=== PATIENT | male | born 1965 | race Caucasian/White ===

== ENCOUNTER 2017-02-24 22:31 | Inpatient (IN) | payer OTHER ==
--- NOTE | 2017-02-24 22:39 | ER Document Report ---
ED Cardiac - General Chief Complaint: Chest Pain > 30 Stated Complaint: CHEST PAIN Time Seen by Provider: 02/24/17 22:37 Mode of Arrival: Medic Information source: Patient Notes: Patient is a 51-year-old male with a history of pulmonary embolism on blood pressure medication who presents to the ER today for left-sided chest pain radiating to the left arm and the left upper back that began this morning. Patient admits to shortness of breath and "gasping for air." He admits to nausea and vomiting this morning as well. Patient is not on any blood thinners , they were stopped 6 months ago after 6 months of them. His pulmonary embolism was a year ago. He was given nitroglycerin on the ambulance on the way here and states that his pain did relieve, has been chest pain-free here in the emergency department. The nitroglycerin did drop his blood pressure to 90/ 40. He denies any history of asthma or COPD, issues breathing. TRAVEL OUTSIDE OF THE [place] IN LAST 30 DAYS: No - Related Data Allergies/Adverse Reactions: acetaminophen [From Percocet] Allergy (Verified 01/01/14 20:19) codeine [Codeine] Allergy (Verified 01/01/14 20:19) oxycodone HCl [From Percocet] Allergy (Verified 01/01/14 20:19) Penicillins Allergy (Verified 01/01/14 20:19) Past Medical History - General Information source: Patient - Social History Smoking Status: Former Smoker Family History: Hypertension - Past Medical History Cardiac Medical History: Reports: Hx Hypertension Neurological Medical History: Reports: Hx Migraine Renal/ Medical History: Reports: Hx Kidney Stones Psychiatric Medical History: Reports: Hx Post Traumatic Stress Disorder Past Surgical History: Reports: Hx Orthopedic Surgery - tmj joint replacement, knee, left shoulder reconstruction - Immunizations Hx Diphtheria, Pertussis, Tetanus Vaccination: Yes Review of Systems - Review of Systems Constitutional: No symptoms reported EENT: No symptoms reported Cardiovascular: See HPI Respiratory: See HPI Gastrointestinal: See HPI Genitourinary: No symptoms reported Male Genitourinary: No symptoms reported Musculoskeletal: No symptoms reported Skin: No symptoms reported Hematologic/Lymphatic: No symptoms reported Neurological/Psychological: No symptoms reported Physical Exam - Vital signs Vitals: Pulse Ox 93 02/24/17 22:34 - Notes Notes: PHYSICAL EXAMINATION: GENERAL: pale, in no acute distress. HEAD: Atraumatic, normocephalic. EYES: Pupils equal round and reactive to light, extraocular movements intact, sclera anicteric, conjunctiva are normal. NECK: Normal range of motion, supple without lymphadenopathy LUNGS: on nasal cannula oxygen, CTAB and equal. No wheezes rales or rhonchi. HEART: chest nontender to palpation, Regular rate and rhythm without murmurs ABDOMEN: Soft, no tenderness. No guarding, no rebound BACK: no vertebral tenderness, normal ROM GI/: no CVA tenderness EXTREMITIES: calves nontender, Normal range of motion, no pitting edema. No cyanosis. NEUROLOGICAL: Cranial nerves grossly intact. Normal sensory/motor exams. PSYCH: Normal mood, normal affect. SKIN: Warm, Dry, normal turgor, no rashes or lesions noted Course - Re-evaluation Re-evalutation: 02/25/17 03:36 Pt has a mildly elevated WBC, d dimer is elevated at 3.95, CTA of the chest negative for PE or acute pathology. chest x ray normal. two sets of cardiac enzymes normal. Pt has remained tachycardic at 101-110 here in the ER and respiratory rate of 25-29 with only 95% on 2L of oxygen. stable aortic aneurysm at 3.8cm, not leaking. Dr. Johnson agrees to admit pt at this time for chest pain rule out. Chest pain has not returned here in ER. - Vital Signs Vital signs: Temp Pulse Resp BP Pulse Ox 99.4 F 110 H 25 H 116/84 94 02/24/17 22:46 02/24/17 22:46 02/25/17 02:01 02/25/17 02:00 02/25/17 02:01 - Laboratory Result Diagrams: 02/24/17 23:15 02/24/17 22:55 Laboratory results interpreted by me: 02/24/17 02/24/17 02/24/17 22:55 22:55 23:15 WBC 14.5 H RBC 3.99 L MCV 98 H MCH 34.1 H Seg Neutrophils % 83.7 H Lymphocytes % 6.1 L Absolute Neutrophils 12.1 H D-Dimer 3.95 H Sodium 135.9 L Chloride 97 L Glucose 122 H Direct Bilirubin 0.6 H Discharge - Discharge Clinical Impression: Chest pain Qualifiers: Chest pain type: unspecified Qualified Code(s): R07.9 - Chest pain, unspecified Condition: Stable Disposition: ADMITTED OBSERVATION Admitting Provider: Hospitalist Unit Admitted: Telemetry
--- NOTE | 2017-02-24 23:22 | RADIOLOGY REPORT (SQ) ---
EXAM DESCRIPTION: CHEST SINGLE VIEW COMPLETED DATE/TIME: 02/24/2017 11:04 pm REASON FOR STUDY: cp COMPARISON: 9.18.15 EXAM PARAMETERS: NUMBER OF VIEWS: One view. TECHNIQUE: Single frontal radiographic view of the chest acquired. RADIATION DOSE: NA LIMITATIONS: None. FINDINGS: LUNGS AND PLEURA: No opacities, masses or pneumothorax. No pleural effusion. MEDIASTINUM AND HILAR STRUCTURES: No masses. Contour normal. HEART AND VASCULAR STRUCTURES: Heart normal in size. Normal vasculature. BONES: No acute findings. HARDWARE: None in the chest. OTHER: No other significant finding. IMPRESSION: NO ACUTE RADIOGRAPHIC FINDING IN THE CHEST. TECHNICAL DOCUMENTATION: JOB ID: [id number]
[2017-02-24 23:38] LABS: ABSOLUTE BASOPHILS # (AUTO) 0.1 10^3/uL (0.0-0.2); ABSOLUTE LYMPHOCYTES (AUTO) 0.9 10^3/uL (0.5-4.7); ABSOLUTE MONOCYTES (AUTO) 1.4 10^3/uL (0.1-1.4); ABSOLUTE NEUT (AUTO) 12.1 10^3/uL (1.7-8.2); BASOPHILS % (AUTO) 0.4 % (0-2); EOSINOPHILS % (AUTO) 0.3 % (0-6); HEMATOCRIT 39.2 % (37.9-51.0); HEMOGLOBIN 13.6 g/dL (13.5-17.0); HGB HCT DIFFERENCE 1.6; LYMPHOCYTES % (AUTO) 6.1 % (13-45); MEAN CORPUSCULAR HEMOGLOBIN 34.1 pg (27.0-33.4); MEAN CORPUSCULAR HGB CONC 34.8 g/dL (32.0-36.0); MEAN CORPUSCULAR VOLUME 98 fl (80-97); MONOCYTES % (AUTO) 9.5 % (3-13); RED BLOOD COUNT 3.99 10^6/uL (4.35-5.55); RED CELL DISTRIBUTION WIDTH 12.6 % (11.5-14.0); SEGMENTED NEUTROPHILS % (AUTO) 83.7 % (42-78); WHITE BLOOD COUNT 14.5 10^3/uL (4.0-10.5)
[2017-02-24 23:43] LABS: CREATINE KINASE MB 0.36 ng/mL (<4.55)
[2017-02-24 23:45] LABS: TROPONIN I < 0.012 ng/mL
[2017-02-24 23:48] LABS: ALBUMIN 3.9 g/dL (3.5-5.0); CHLORIDE 97 mmol/L (98-107); GLUCOSE 122 mg/dL (75-110); POTASSIUM 3.9 mmol/L (3.6-5.0); SODIUM 135.9 mmol/L (137-145); TOTAL PROTEIN 7.6 g/dL (6.3-8.2)
[2017-02-24 23:49] LABS: ANION GAP 15 (5-19); BLOOD UREA NITROGEN 11 mg/dL (7-20); CARBON DIOXIDE 24 mmol/L (22-30); CREATININE RESULT 0.88 mg/dL (0.52-1.25)
[2017-02-24 23:50] LABS: ALANINE AMINOTRANSFERASE 42 U/L (21-72); ALKALINE PHOSPHATASE 103 U/L (38-126); ASPARTATE AMINO TRANSFERASE 46 U/L (17-59); CALCIUM 9.6 mg/dL (8.4-10.2)
[2017-02-24 23:51] LABS: BILIRUBIN,DIRECT 0.6 mg/dL (0.0-0.4); CREATINE KINASE 73 U/L (55-170)
--- NOTE | 2017-02-25 00:59 | RADIOLOGY REPORT (SQ) ---
EXAM DESCRIPTION: CTA CHEST COMPLETED DATE/TIME: 02/25/2017 12:25 am REASON FOR STUDY: elevated d dimer, hx PE, cp COMPARISON: 02/01/2015. TECHNIQUE: CT scan of the chest performed using helical scanning technique with dynamic intravenous contrast injection. Images reviewed with lung, soft tissue and bone windows. Reconstructed coronal and sagittal MPR images reviewed. Additional 3 dimensional post-processing performed to develop Maximal Intensity Projection images (ID P). All images stored on PACS. All CT scanners at this facility use dose modulation, iterative reconstruction, and/or weight based d osing when appropriate to reduce radiation dose to as low as reasonably achievable (ALARA). [facility]: Dose Right [facility]: CareDose [facility]: Dose Right [facility]: Teradose 4D [facility]: A+ Network CONTRAST TYPE AND DOSE: contrast/concentration: Isovue 370.00 mg/ml; Total Contrast Delivered: 100.0 ml; Total Saline Delivered: 55.0 ml Contrast bolus optimized for the pulmonary arteries. Not diagnostic for the aorta. RENAL FUNCTION: Creatinine 0.9 RADIATION DOSE: Up-to-date CT equipment and radiation dose reduction techniques were employed. CTDIv ol: 19.7 mGy. DLP: 703 mGy-cm. . LIMITATIONS: None. FINDINGS: LUNGS AND PLEURA: No masses, infiltrates, pneumothorax. No pleural effusions, calcificati ons. AORTA AND GREAT VESSELS: Mild aneurysmal enlargement of the ascending aorta measuring up to 3.8 cm in diameter. Contrast bolus not optimized for the aorta. HEART: No pericardial effusion. No significant coronary artery calcifications. PULMONARY ARTERIES: No emboli visualized in the main pulmonary arteries or the segmental branches. HILAR AND MEDIASTINAL STRUCTURES: No identified masses or abnormal nodes. HARDWARE: None in the chest. UPPER ABDOMEN: Limited exam. Splenule. Cortical scar of the left upper renal pole. THYROID AND OTHER SOFT TISSUES: No masses. No adenopathy. BONES: No acute or significant finding. 3D MIPS: Confirm above findings. OTHER: No other significant finding. IMPRESSION: No acute cardiopulmonary findings. No evidence of pulmonary emboli. Mild aneurysmal en largement of the ascending aorta measuring up to 3.8 cm in diameter without suspicious interval andersen e. COMMENT: Quality ID # [id number]: Final reports with documentation of one or more dose reduction techniques (e.g., Automated exposure control, adjustment of the mA and/or kV according to patient size, use of iterative reconstruction technique) TECHNICAL DOCUMENTATION: JOB ID: [id number] [employer]- All Rights Reserved
[2017-02-25] MEDS ORDERED: NITROGLYCERIN 0.4 MG/TAB 25 TAB/BOTTLE SL PRN (05:47)
[2017-02-25] MEDS ORDERED: HYDRALAZINE HCL INJ/PF 20 MG/1 ML SDV IV PRN (05:50)
[2017-02-25] MEDS ORDERED: (PENDING PHARMACY ID) (Aripiprazole [Abilify 10 Mg Tablet] 10 MG) PO PRN (05:50)
[2017-02-25] MEDS ORDERED: INFLUENZA ADLT QUAD (36MOS+) 2017-18 VAC 0.5 ML SYR IM PRN ×2 (06:10→13:30)
--- NOTE | 2017-02-25 06:29 | PDOC H&P ---
History of Present Illness Admission Date/PCP: 02/25/17 03:41 Patient complains of: Chest pain History of Present Illness: CHELY ALVAREZ is a 51 year old male with a past medical history of depression, anxiety, hypertension, pulmonary embolism not on anticoagulation, 4 cm thoracic aortic aneurysm and BPH who is brought to the emergency room by [facility] as he is in custody of the state. He has had approximately 12 hours of sharp left-sided intermittent 3 out of 5 intensity chest pain, nonradiating associated with nausea without vomiting and shortness of breath. He admits previous episode approximately 18 months ago secondary to pulmonary embolism. Initial workup in the emergency room is unremarkable including a negative CTA of the chest for pulmonary embolism. The CT does show an unchanged thoracic aortic aneurysm of 4 cm. Past Medical History Cardiac Medical History: Reports: Hypertension Neurological Medical History: Reports: Migraine Psychiatric Medical History: Reports: Post Traumatic Stress Disorder Past Surgical History Past Surgical History: Reports: Orthopedic Surgery - tmj joint replacement, knee , left shoulder reconstruction Social History Information Source: Patient Lives with: Other - Present Smoking Status: Unknown if Ever Smoked Drugs: None - Advance Directive Resuscitation Status: Full Code Family History Family History: Hypertension Parental Family History Reviewed: Yes Children Family History Reviewed: Yes Sibling(s) Family History Reviewed.: Yes Medication/Allergy Home Medications: Docusate Sodium [Dulcolax Stool Softener] 100 mg PO DAILY 04/27/13 Hydrocodone/Acetaminophen [[place] 10-325 Tablet] 1 each PO ASDIR PRN 04/27/13 Mirtazapine 15 mg PO QHS 04/27/13 Morphine Sulfate 15 mg PO ASDIR PRN 04/27/13 Ondansetron HCl [Zofran 4 mg Tablet] 1 - 2 tab PO Q4H PRN 04/27/13 Prazosin HCl 2 mg PO ASDIR PRN 04/27/13 Zolpidem Tartrate 10 mg PO QHS 04/27/13 Aripiprazole [Abilify 10 mg Tablet] 10 mg PO HSP PRN 02/01/15 Clonazepam [Klonopin] 0.5 mg PO PRN 02/01/15 Metoprolol Succinate 25 mg PO DAILY 02/01/15 Pregabalin [Lyrica 75 mg Capsule] 75 mg PO BID 02/01/15 Rivaroxaban [Xarelto] 20 mg PO DAILY 02/01/15 Sumatriptan Succinate 100 mg PO PRN 02/01/15 Tizanidine HCl [Zanaflex 4 mg Tablet] 4 mg PO BID PRN 02/01/15 Hydrocodone/Acetaminophen [[place]ley 5-325 mg Tablet] 1 tab PO Q4H #12 tablet Ondansetron [Zofran Odt 4 mg Tablet] 1 - 2 tab PO Q4H PRN #15 tab.rapdis Tamsulosin HCl [Flomax 0.4 mg Cap.sr] 0.4 mg PO DAILY #7 cap.sr.24h 02/22/16 Allergies/Adverse Reactions: acetaminophen [From Percocet] Allergy (Verified 01/01/14 20:19) codeine [Codeine] Allergy (Verified 01/01/14 20:19) oxycodone HCl [From Percocet] Allergy (Verified 01/01/14 20:19) Penicillins Allergy (Verified 01/01/14 20:19) Review of Systems Constitutional: ABSENT: chills, fever(s), headache(s), weight gain, weight loss Eyes: ABSENT: visual disturbances Ears: ABSENT: hearing changes Cardiovascular: ABSENT: chest pain, dyspnea on exertion, edema, orthropnea, palpitations Respiratory: ABSENT: cough, hemoptysis Gastrointestinal: ABSENT: abdominal pain, constipation, diarrhea, hematemesis, hematochezia, nausea, vomiting Genitourinary: ABSENT: dysuria, hematuria Musculoskeletal: ABSENT: joint swelling Integumentary: ABSENT: rash, wounds Neurological: ABSENT: abnormal gait, abnormal speech, confusion, dizziness, focal weakness, syncope Psychiatric: ABSENT: anxiety, depression, homidical ideation, suicidal ideation Endocrine: ABSENT: cold intolerance, heat intolerance, polydipsia, polyuria Hematologic/Lymphatic: ABSENT: easy bleeding, easy bruising Physical Exam Vital Signs: Temp Pulse Resp BP Pulse Ox 98.8 F 108 H 17 110/76 98 02/25/17 05:15 02/25/17 05:15 02/25/17 05:15 02/25/17 03:00 02/25/17 05:15 Intake & Output 02/23/17 02/24/17 02/25/17 11:59 11:59 11:59 Weight 90.7 kg General appearance: PRESENT: cooperative, disheveled, mild distress, other Head exam: PRESENT: other - [place], yellow scale of seborrheic dermatitis Eye exam: PRESENT: conjunctiva pink, EOMI, PERRLA. ABSENT: scleral icterus Ear exam: PRESENT: normal external ear exam Mouth exam: PRESENT: moist, tongue midline Neck exam: ABSENT: carotid bruit, JVD, lymphadenopathy, thyromegaly Respiratory exam: PRESENT: clear to auscultation kelsey. ABSENT: rales, rhonchi, wheezes Cardiovascular exam: PRESENT: RRR. ABSENT: diastolic murmur, rubs, systolic murmur Pulses: PRESENT: normal dorsalis pedis pul Vascular exam: PRESENT: normal capillary refill GI/Abdominal exam: PRESENT: normal bowel sounds, soft. ABSENT: distended, guarding, mass, organolmegaly, rebound, tenderness Rectal exam: PRESENT: deferred Extremities exam: PRESENT: full ROM. ABSENT: calf tenderness, clubbing, pedal edema Neurological exam: PRESENT: alert, awake, oriented to person, oriented to place , oriented to time, oriented to situation, CN II-XII grossly intact. ABSENT: motor sensory deficit Psychiatric exam: PRESENT: anxious Skin exam: PRESENT: other - [place], yellow scale of seborrheic dermatitis Results Impressions: Chest/Abdomen CTA 02/24/17 00:00 IMPRESSION: No acute cardiopulmonary findings. No evidence of pulmonary emboli. Mild aneurysmal enlargement of the ascending aorta measuring up to 3.8 cm in diameter without suspicious interval change. Chest X-Ray 02/24/17 22:38 IMPRESSION: NO ACUTE RADIOGRAPHIC FINDING IN THE CHEST. Assessment & Plan - Diagnosis (1) Chest pain Qualifiers: Chest pain type: unspecified Qualified Code(s): R07.9 - Chest pain, unspecified Is this a current diagnosis for this admission?: Yes Plan: Atypical chest pain though the patient's pain is atypical there are multiple risk factors for coronary artery disease and subsequently will observe and evaluation of acute coronary syndrome versus coronary artery disease with anginal equivalents. Cardiac monitoring blood pressure Q6 hours ,TSH, lipid profile, serial cardiac enzymes and cardiac stress test (2) Leukocytosis Is this a current diagnosis for this admission?: Yes Plan: Unclear source, no focal complaint, history of BPH will obtain UA and empiric treatment with Levaquin for UTI. (3) Hypertension Is this a current diagnosis for this admission?: Yes Plan: Outpatient regiment with hydralazine as needed (4) Seborrheic dermatitis Is this a current diagnosis for this admission?: Yes Plan: Consider evaluation of HIV status, given widespread affected area oral Diflucan ordered. - Time Time Spent: 30 to 50 Minutes
[2017-02-25] MEDS ORDERED: FLUCONAZOLE 100 MG TABLET PO ONE (06:30)
[2017-02-25] MEDS: HEPARIN SOD (PORCINE) 5,000 UNIT/ML 1 ML SYRINGE SUBCUT SCH ×3 (06:48→20:23)
[2017-02-25] MEDS: KETOROLAC TROMETHAMINE INJ/PF 30 MG/1 ML SDV IV PRN ×3 (06:48→20:26)
[2017-02-25 06:58] LABS: APPEARANCE,URINE CLEAR; BILIRUBIN,URINE NEGATIVE (NEGATIVE); GLUCOSE, URINE NEGATIVE (NEGATIVE); KETONES,URINE 80 mg/dL (NEGATIVE); LEUKOCYTE ESTERASE,URINE NEGATIVE (NEGATIVE); NITRITE,URINE NEGATIVE (NEGATIVE); PROTEIN,URINE NEGATIVE (NEGATIVE); URINE SPECIFIC GRAVITY 1.057; UROBILINOGEN,URINE NEGATIVE mg/dL (<2.0)
[2017-02-25] MEDS ORDERED: LEVOFLOXACIN 750 MG/D5W RTU 750 MG/150 ML RTUPB IV ONE (07:00)
--- NOTE | 2017-02-25 08:03 | EKG REPORT ---
SEVERITY:- ABNORMAL ECG - SINUS TACHYCARDIA PROBABLE LEFT ATRIAL ABNORMALITY LVH WITH SECONDARY REPOLARIZATION ABNORMALITY : Confirmed by: Johny Ramirze MD 25-Feb-2017 08:03:08
[2017-02-25 09:47] LABS: CREATINE KINASE MB 0.32 ng/mL (<4.55)
[2017-02-25 09:48] LABS: TROPONIN I < 0.012 ng/mL
[2017-02-25] MEDS: TAMSULOSIN HCL 0.4 MG CAP.SR.24H PO SCH (10:16)
[2017-02-25] MEDS: METOPROLOL SUCCINATE 25 MG TAB.SR.24H PO SCH (10:16)
[2017-02-25] MEDS ORDERED: AMINOPHYLLINE INJ/PF 250 MG/10 ML SDV IV ONE (11:34)
[2017-02-25] MEDS ORDERED: REGADENOSON INJ 0.4 MG/5 ML DISP.SYRIN IV ONE (11:34)
--- NOTE | 2017-02-25 15:56 | DRAGON STRESS TEST REPORT ---
INTRAVENOUS LEXISCAN CARDIOLITE STRESS TEST USING SINGLE PHOTON EMMISION COMPUTERIZED TOMOGRAPHIC. DATE OF PROCEDURE: February 25, 2017 INDICATION : Chest pain CARDIAC RISK FACTORS: Hypertension, dyslipidemia RESTING EKG: Sinus rhythm, minor nonspecific T-wave changes noted in. STRESS EKG: No significant changes noted with LexiScan bolus REASON FOR TERMINATION: Protocol. PROCEDURE REPORT: Baseline heart rate 90 beats per minute with blood pressure of 110/80. Patient had no significant complaints. Heart rate at 2 minutes post bolus 122 with a blood pressure of 119/84. 3 minutes post bolus heart rate 113 with blood pressure of 123/84. No significant EKG changes were noted. Patient had no significant complaints during the procedure or postprocedure. Patient injected with Aminophyllin 75 mg at 3 minutes or later after Lexiscan bolus. CONCLUSIONS: Normal EKG and hemodynamic response to IV LexiScan. NUCLEAR DATA: At rest the patient was given 13.44 millicuries of technetium 99 sestamibi injected intravenously. As per protocol rest gated SPECT images were obtained. Subsequently the patient was given intravenous LexiScan at a dose of 0.4 mg in 5 mL intravenously, followed by flush with normal saline. Subsequently the stress dose of 40.3 millicuries of technetium 99 sestamibi was injected intravenously. As per protocol stress gated images were obtained. NUCLEAR INTERPRETATION: Both raw and processed data were used for interpretation. Visual, qualitative, computer-generated quantitative data was used. There was good myocardial uptake of technetium compound. Motion artifact and soft tissue attenuations were noted. Increased visceral uptake was noted. No definitive areas of transient perfusion defect noted. No definitive areas of fixed perfusion defect or scars noted. EKG gated imaging showed LV EF at 57 %, rest and stress gated EF similar visually. T. I D. ratio was 1.45. Lung heart ratio noted to be within normal limits 0.30. No significant extracardiac and abnormal radiotracer activities were noted. RV free wall uptake was noted to be WNL. IMPRESSION: Also refer to comments under nuclear interpretation. Also test results needs to be interpreted in the context of pretest probability. 1. There is no definitive scintigraphic evidence of LexiScan induced myocardial ischemia. 2. There is no definitive scintigraphic evidence of myocardial infarction/scar. 3. EKG gated imaging shows left ventricular ejection fraction of approximately 57 %. 4. Transient ischemic dilatation noted. Recent literature review suggest that there may not be an increased cardiovascular event rate in the absence of significant transient perfusion defects and could be related to LVH, microvascular disease. Older literature suggest that it could sometimes represent balanced ischemia from three-vessel disease. Clinical correlation therefore requested. In approximately 10% of the cases Lexiscan may not cause adequate vasodilatory stress. RECOMMENDATIONS: Aggressive risk factor modification, medical therapy. Clinical correlation with echocardiogram derived ejection fraction. Inability to exercise by itself can lead to increased cardiovascular event risks. Consider cardiology consultation and or follow-up if clinically indicated. I AM AVAILABLE FOR CARDIOLOGY CONSULTATION AND FOLLOWUP IF REQUESTED BY PMD Gibran Pro M.D., [employer], Board certified in cardiovascular diseases, Nuclear cardiology, Echocardiography Cardiac CT and cardiac MRI Ph. [phone] [facility]
--- NOTE | 2017-02-25 16:53 | PDOC PROGRESS REPORT ---
Subjective Progress Note for:: 02/25/17 Subjective:: The patient is a 51-year-old who was admitted to the hospital with chest pain and shortness of breath. He has a history of a pulmonary embolism in the past. Today the patient had a Cardiolite stress test performed. The patient had a CT angiography at the time of admission which was negative for pulmonary embolus or underlying infiltrate. He has continued to run a low-grade fever and have some mild sinus tachycardia. He states his biggest problem and the real reason he came to the hospital was because he had bilateral leg pain. He states the pain had gotten so bad that it was difficult to ambulate. He states that the pain is located primarily in the calf popliteal area and distal just above the back of his knees. He states he continues to have chest pain and shortness of breath. He is not hypoxic but feels better wearing some oxygen. He has had no nausea, vomiting or diarrhea. No dysuria, frequency or hematuria. He is not having any abdominal pain. Physical Exam Vital Signs: Temp Pulse Resp BP Pulse Ox 99.0 F 100 17 119/74 99 02/25/17 11:28 02/25/17 15:55 02/25/17 11:28 02/25/17 11:28 02/25/17 11:28 Intake & Output 02/24/17 02/25/17 02/26/17 06:59 06:59 06:59 Weight 90.7 kg General appearance: PRESENT: no acute distress, disheveled, well-developed, well -nourished Head exam: PRESENT: atraumatic, normocephalic Mouth exam: PRESENT: moist, tongue midline Respiratory exam: PRESENT: clear to auscultation kelsey. ABSENT: rales, rhonchi, wheezes Cardiovascular exam: PRESENT: RRR. ABSENT: diastolic murmur, rubs, systolic murmur Vascular exam: PRESENT: normal capillary refill GI/Abdominal exam: PRESENT: normal bowel sounds, soft. ABSENT: distended, guarding, mass, organolmegaly, rebound, tenderness Rectal exam: PRESENT: deferred Extremities exam: PRESENT: calf tenderness, other - Also tender in the popliteal area and thigh area above the popliteal area. Neurological exam: PRESENT: alert, awake, oriented to person, oriented to place , oriented to time, oriented to situation, CN II-XII grossly intact. ABSENT: motor sensory deficit Psychiatric exam: PRESENT: flat affect. ABSENT: agitated, anxious Skin exam: PRESENT: dry, intact, warm. ABSENT: cyanosis, rash Results Laboratory Results: 02/25/17 06:35 Urine Color YELLOW Urine Appearance CLEAR Urine pH 6.0 Ur Specific [place] 1.057 Urine Protein NEGATIVE Urine Glucose (UA) NEGATIVE Urine Ketones 80 H Urine Blood SMALL H Urine Nitrite NEGATIVE Ur Leukocyte Esterase NEGATIVE Urine WBC (Auto) 1 Urine RBC (Auto) 1 02/25/17 08:59 CK-MB (CK-2) 0.32 Troponin I < 0.012 Impressions: Chest/Abdomen CTA 02/24/17 00:00 IMPRESSION: No acute cardiopulmonary findings. No evidence of pulmonary emboli. Mild aneurysmal enlargement of the ascending aorta measuring up to 3.8 cm in diameter without suspicious interval change. Chest X-Ray 02/24/17 22:38 IMPRESSION: NO ACUTE RADIOGRAPHIC FINDING IN THE CHEST. Assessment & Plan - Diagnosis (1) Chest pain Qualifiers: Chest pain type: unspecified Qualified Code(s): R07.9 - Chest pain, unspecified Is this a current diagnosis for this admission?: Yes Plan: CT angiography was negative for pulmonary embolus. He did have an elevated d- dimer with history of PE in the past. No evidence for pneumonia noted. He is on IV Levaquin. He continues to run a low-grade fever be somewhat tachycardic. Stress test is pending. I am going to keep him in the hospital overnight. We will recheck labs in the morning. I am going to obtain venous Dopplers of his lower extremities (2) Leg pain Plan: He states this was the main reason he came to the hospital. He states the leg pain had gotten so bad that he was unable to walk. He is quite tender to palpation in the calf popliteal area in the back of his thighs. He has a history of DVT with an elevated d-dimer. I will obtain bilateral venous Dopplers this evening and we will follow-up with those results. (3) Leukocytosis Is this a current diagnosis for this admission?: Yes Plan: The patient has a low-grade fever and leukocytosis. We will recheck labs tomorrow morning. Empirically he has been placed on p.o. on Levaquin. (4) Hypertension Is this a current diagnosis for this admission?: Yes Plan: Stable (5) Seborrheic dermatitis Is this a current diagnosis for this admission?: Yes Plan: Continue current regimen - Time Time Spent with patient: 15-24 minutes - Inpatient Certification Medical Necessity: Other - The patient will remain in observation in the hospital. We will await his stress test results. Will get venous Dopplers. And repeat labs in the morning. Hopefully he can be discharged back to his institution in the next 24-48 hours.
[2017-02-25 17:04] LABS: CREATINE KINASE MB 0.32 ng/mL (<4.55)
[2017-02-25 17:05] LABS: TROPONIN I < 0.012 ng/mL
--- NOTE | 2017-02-25 17:44 | RADIOLOGY REPORT (SQ) ---
EXAM DESCRIPTION: VENOUS BILATERAL LOWER COMPLETED DATE/TIME: 02/25/2017 5:30 pm REASON FOR STUDY: elevated d dimer, leg pain COMPARISON: None. TECHNIQUE: Dynamic and static butler scale and color images acquired of both lower extremity venous sy stems. Selected spectral images acquired with additional compression and augmentation maneuvers. Imag es stored on PACS. LIMITATIONS: None. FINDINGS: RIGHT LEG COMMON FEMORAL AND FEMORAL: Normal phasicity, compression and augmentation. No visualized echogenic m aterial on butler scale. No defects on color images. POPLITEAL: Normal compression and augmentation. No visualized echogenic material on butler scale. No de fects on color images. CALF VESSELS: Normal compression and augmentation. No visualized echogenic material on butler scale. No defects on color image. GSV AND SSV: Normal compression. No visualized echogenic material on butler scale. No defects on color images. ANY DEEP VENOUS INSUFFICIENCY: Not evaluated. ANY EVIDENCE OF POPLITEAL CYST: No. OTHER: No other significant finding. LEFT LEG COMMON FEMORAL AND FEMORAL: Normal phasicity, compression and augmentation. No visualized echogenic m aterial on butler scale. No defects on color images. POPLITEAL: Normal compression and augmentation. No visualized echogenic material on butler scale. No de fects on color images. CALF VESSELS: Normal compression and augmentation. No visualized echogenic material on butler scale. No defects on color images. GSV AND SSV: Normal compression. No visualized echogenic material on butler scale. No defects on color images. ANY DEEP VENOUS INSUFFICIENCY: Not evaluated. ANY EVIDENCE POPLITEAL CYST: No. OTHER: No other significant finding. IMPRESSION: NO EVIDENCE DVT OR SVT IN EITHER LEG. TECHNICAL DOCUMENTATION: JOB ID: [id number] [employer]- All Rights Reserved
[2017-02-25] MEDS: ATORVASTATIN CALCIUM 80 MG TABLET PO SCH (20:26)
[2017-02-25 22:35] LABS: CREATINE KINASE MB 0.41 ng/mL (<4.55)
[2017-02-25 22:39] LABS: TROPONIN I < 0.012 ng/mL
[2017-02-26 04:47] LABS: ABSOLUTE EOSINOPHILS # (AUTO) 0.2 10^3/uL (0.0-0.6); ABSOLUTE LYMPHOCYTES (AUTO) 1.1 10^3/uL (0.5-4.7); ABSOLUTE MONOCYTES (AUTO) 1.2 10^3/uL (0.1-1.4); ABSOLUTE NEUT (AUTO) 10.7 10^3/uL (1.7-8.2); BASOPHILS % (AUTO) 0.3 % (0-2); EOSINOPHILS % (AUTO) 1.4 % (0-6); HEMATOCRIT 37.6 % (37.9-51.0); HGB HCT DIFFERENCE 1.4; LYMPHOCYTES % (AUTO) 8.6 % (13-45); MEAN CORPUSCULAR HEMOGLOBIN 34.2 pg (27.0-33.4); MEAN CORPUSCULAR HGB CONC 34.5 g/dL (32.0-36.0); MEAN CORPUSCULAR VOLUME 99 fl (80-97); MONOCYTES % (AUTO) 9.3 % (3-13); RED BLOOD COUNT 3.79 10^6/uL (4.35-5.55); RED CELL DISTRIBUTION WIDTH 12.9 % (11.5-14.0); SEGMENTED NEUTROPHILS % (AUTO) 80.4 % (42-78); WHITE BLOOD COUNT 13.3 10^3/uL (4.0-10.5)
[2017-02-26 05:00] LABS: ANION GAP 12 (5-19); BLOOD UREA NITROGEN 13 mg/dL (7-20); CALCIUM 9.2 mg/dL (8.4-10.2); CARBON DIOXIDE 25 mmol/L (22-30); CHLORIDE 100 mmol/L (98-107); CHOLESTEROL 120.55 mg/dL (0-200); CREATINE KINASE 41 U/L (55-170); CREATININE RESULT 0.86 mg/dL (0.52-1.25); Direct HDL 24 mg/dL (>40); GLUCOSE 99 mg/dL (75-110); POTASSIUM 4.3 mmol/L (3.6-5.0); SODIUM 136.7 mmol/L (137-145); TRIGLYCERIDES 80 mg/dL (<150)
[2017-02-26 05:10] LABS: DIRECT LDL 75 mg/dL (<100)
[2017-02-26] MEDS: HEPARIN SOD (PORCINE) 5,000 UNIT/ML 1 ML SYRINGE SUBCUT SCH ×3 (05:18→21:00)
[2017-02-26] MEDS: LEVOFLOXACIN 750 MG/D5W RTU 750 MG/150 ML RTUPB IV SCH (05:20)
[2017-02-26] MEDS: KETOROLAC TROMETHAMINE INJ/PF 30 MG/1 ML SDV IV PRN ×3 (05:33→21:00)
[2017-02-26 09:37] LABS: ALANINE AMINOTRANSFERASE 33 U/L (21-72); ALKALINE PHOSPHATASE 87 U/L (38-126); ASPARTATE AMINO TRANSFERASE 40 U/L (17-59); BILIRUBIN,DIRECT 0.5 mg/dL (0.0-0.4); TOTAL PROTEIN 5.9 g/dL (6.3-8.2)
[2017-02-26] MEDS: TAMSULOSIN HCL 0.4 MG CAP.SR.24H PO SCH (10:10)
[2017-02-26] MEDS: METOPROLOL SUCCINATE 25 MG TAB.SR.24H PO SCH (10:10)
--- NOTE | 2017-02-26 11:35 | PDOC CONSULTATION ---
Consultation Consult Date: 02/26/17 Attending physician:: ZHEN CHANEY Consult reason:: Chest pain History of Present Illness Admission Date/PCP: 02/25/17 05:48 Patient complains of: Chest pain History of Present Illness: CHELY ALVAREZ is a 51 year old male with a past medical history of depression, anxiety, hypertension, pulmonary embolism not on anticoagulation, 4 cm thoracic aortic aneurysm and BPH who is brought to the emergency room by [facility] as he is in custody of the [facility]. He has had approximately 12 hours of sharp left-sided intermittent 3 out of 5 intensity chest pain, nonradiating associated with nausea without vomiting and shortness of breath. He admits previous episode approximately 18 months ago secondary to pulmonary embolism. Initial workup in the emergency room is unremarkable including a negative CTA of the chest for pulmonary embolism. The CT does show an unchanged thoracic aortic aneurysm of 4 cm. Patient yesterday underwent a nuclear stress test which was negative for any perfusion defect but did show transient ischemic dilatation. Patient today on questioning denied any chest pain. His cardiac enzymes are completely negative. His chest pain clinically is felt to be noncardiac. A 2D echocardiogram ordered is pending. This history was reviewed supplemented and confirmed. Past Medical History Cardiac Medical History: Reports: Hypertension Neurological Medical History: Reports: Migraine Psychiatric Medical History: Reports: Post Traumatic Stress Disorder Past Surgical History Past Surgical History: Reports: Orthopedic Surgery - tmj joint replacement, knee , left shoulder reconstruction Social History Information Source: Patient Lives with: Other - Present Smoking Status: Unknown if Ever Smoked Drugs: None - Advance Directive Resuscitation Status: Full Code Surrogate healthcare decision maker:: Patient did not identify a surrogate decision maker Family History Family History: Hypertension Parental Family History Reviewed: Yes Children Family History Reviewed: Yes Sibling(s) Family History Reviewed.: Yes - Negative for premature coronary artery disease or sudden cardiac in the immediate family members Medication/Allergy Home Medications: No Home Medications 02/25/17 Allergies/Adverse Reactions: acetaminophen [From Percocet] Allergy (Verified 01/01/14 20:19) codeine [Codeine] Allergy (Verified 01/01/14 20:19) oxycodone HCl [From Percocet] Allergy (Verified 01/01/14 20:19) Penicillins Allergy (Verified 01/01/14 20:19) Review of Systems Review of Systems: Please see history of present illness and past medical history as wall. Constitutional: No fever or chills reported. Head : No recent chronic headaches, recent head injury. Eyes: No recent eye pain, diplopia, redness, discharge, acute visual changes. Ears: No recent chronic ear pain, acute hearing loss, ear discharge. Oral cavity: No recent ulcerations, bleeding, oral cavity discomfort. Neck: No recent acute neck pain reported. Hematologic: No recent easy bruising or bleeding or hematologic malignancy reported. Lymphatic: No recent lymphatic malignancy, chronic lymphadenopathy reported yet Cardiovascular system review: See history of present illness. Respiratory system review: No recent chronic cough, hemoptysis, blood clots in the lungs reported. Mild Shortness of breath on exertion Gastrointestinal system review: Negative for any recent acute or chronic abdominal pain, hematemesis, melena, recent change in bowel habits. Genitourinary system review: No recent acute or chronic hematuria, flank pain, UTI etc. reported. Skin system review: Negative for any recent abnormal bruising, no rash, no pruritus reported. Neurologic: No prior history of strokes, mini strokes, seizure disorder. Psychologic: No history of major psychosis or major depression reported. Musculoskeletal: Minor aches and pains reported. No acute joint swelling reported. Endocrine: No recent polyuria, polydipsia, recent heat or cold intolerance. Physical Exam Vital Signs: Temp Pulse Resp BP Pulse Ox 99.0 F 82 18 114/70 96 02/26/17 07:37 02/26/17 07:37 02/26/17 07:37 02/26/17 07:37 02/26/17 07:37 Intake & Output 02/25/17 02/26/17 02/27/17 06:59 06:59 06:59 Intake Total 691 Output Total 1250 Balance -559 Weight 90.7 kg 92.2 kg Exam: GENERAL: well-nourished and in no acute distress. Alert and oriented x3 HEAD: Atraumatic, normocephalic. EYES: Pupils equal round and reactive to light, extraocular movements intact, sclera anicteric, conjunctiva are normal. ENT: TMs normal, nares patent, oropharynx clear without exudates. Moist mucous membranes. No oral ulcerations or bleeding gums noted NECK: supple without lymphadenopathy. Trachea is central. No cervical or axillary lymphadenopathy noted. Carotids are 2+, JVD WNL LUNGS: Respiration seems nonlabored, no significant accessory muscle action noted. Breath sounds clear to auscultation bilaterally and equal noted. No wheezes rales or rhonchi noted. No significant dullness noted on percussion. CHEST: Palpation of the chest wall shows no significant chest wall tenderness. No other significant abnormalities noted. 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 ABDOMEN: Soft, no significant tenderness appreciated, normoactive bowel sounds. No guarding, no rebound. No rigidity noted . No masses appreciated. EXTREMITIES: Pedal pulses are 1-2+, no calf tenderness noted. No clubbing or cyanosis. Negative pedal edema noted NEUROLOGICAL: Focused neurological exam showed no significant neurologic deficit. Normal speech, no focal weakness appreciated. PSYCH: Normal mood, normal affect. Judgment and insight within normal limits. SKIN: No significant ecchymosis, rash, ulcerations or signs of pruritus noted. MUSCULOSKELETAL EXAM: No significant joint swelling noted. Results Laboratory Results: 02/26/17 04:15 02/26/17 04:15 02/26/17 02/26/17 02/26/17 04:15 04:15 04:15 WBC 13.3 H RBC 3.79 L Hgb 13.0 L Hct 37.6 L MCV 99 H MCH 34.2 H MCHC 34.5 RDW 12.9 Plt Count 293 Seg Neutrophils % 80.4 H Lymphocytes % 8.6 L Monocytes % 9.3 Eosinophils % 1.4 Basophils % 0.3 Absolute Neutrophils 10.7 H Absolute Lymphocytes 1.1 Absolute Monocytes 1.2 Absolute Eosinophils 0.2 Absolute Basophils 0.0 Sodium 136.7 L Potassium 4.3 Chloride 100 Carbon Dioxide 25 Anion Gap 12 BUN 13 Creatinine 0.86 Est GFR ( Amer) > 60 Est GFR (Non-Af Amer) > 60 Glucose 99 Calcium 9.2 Magnesium 2.0 Total Bilirubin 1.0 AST 40 ALT 33 Alkaline Phosphatase 87 Total Protein 5.9 L Albumin 3.0 L Triglycerides 80 Cholesterol 120.55 LDL Cholesterol Direct 75 VLDL Cholesterol 16.0 HDL Cholesterol 24 L 02/25/17 02/25/17 02/25/17 08:59 15:47 21:50 Creatine Kinase CK-MB (CK-2) 0.32 0.32 0.41 Troponin I < 0.012 < 0.012 < 0.012 02/26/17 04:15 Creatine Kinase 41 L CK-MB (CK-2) Troponin I EKG Comments: Sinus tachycardia, minor nonspecific ST-T wave changes noted Impressions: Chest/Abdomen CTA 02/24/17 00:00 IMPRESSION: No acute cardiopulmonary findings. No evidence of pulmonary emboli. Mild aneurysmal enlargement of the ascending aorta measuring up to 3.8 cm in diameter without suspicious interval change. Chest X-Ray 02/24/17 22:38 IMPRESSION: NO ACUTE RADIOGRAPHIC FINDING IN THE CHEST. Venous Doppler Study 02/25/17 00:00 IMPRESSION: NO EVIDENCE DVT OR SVT IN EITHER LEG. Assessment & Plan - Diagnosis (1) Chest pain Qualifiers: Chest pain type: unspecified Qualified Code(s): R07.9 - Chest pain, unspecified Is this a current diagnosis for this admission?: Yes (2) Hypertension Qualifiers: Hypertension type: essential hypertension Qualified Code(s): I10 - Essential (primary) hypertension Is this a current diagnosis for this admission?: Yes (3) Thoracic aortic aneurysm without rupture Is this a current diagnosis for this admission?: No - Notes Notes: Chest pain: Currently stable without any chest pain. Nuclear stress test showed no ischemia but did show transient ischemic dilatation. Most recent literature review do not show increased cardiovascular event risk. Transient ischemic dilatation could be due to LVH, microvascular ischemia. Doubt balanced ischemia in this particular patient. Also cardiac CTA chest CTA did not show significant calcification of the coronaries. At this point would recommend medical management with beta blockers, antiplatelet therapy, statins etc. Hypertension: Blood pressure goal should be 135/85 or less. Thoracic aortic aneurysm: Thoracic aorta measures 4.0 cm which is probably within normal limits for patient's height. However patient may benefit from regular follow-up. If patient remains stable, can be discharged from cardiac standpoint after his echo is completed. - Time Time Spent: 30 to 50 Minutes - More than 50% of the time spent coordinating care , discussing management plans with involved caregivers. Management plans discussed with involved personnels. Medical decision making was of moderate to high complexity, patient's has multiple comorbidities. Patient remains full code. Medications reviewed and adjusted accordingly: Yes
--- NOTE | 2017-02-26 12:32 | PDOC PROGRESS REPORT ---
Subjective Progress Note for:: 02/26/17 Subjective:: The patient is a 51-year-old who was admitted to the hospital with chest pain and shortness of breath. He has a history of a pulmonary embolism in the past. Yesterday the patient had a Cardiolite stress test performed. He was seen by cardiology this morning. He has a 2D echocardiogram pending. The patient had a CT angiography at the time of admission which was negative for pulmonary embolus or underlying infiltrate. He has continued to run a low-grade fever and have some mild sinus tachycardia. He was complaining of bilateral leg pain and had negative venous Dopplers. He had been started on p.o. Levaquin at the time of admission for possible lung infection. In spite of this the patient has had continued fevers and persistent leukocytosis. He has a markedly elevated sed rate greater than 100. Today when I saw him he just states that he feels weak. He knows that he is running a fever at times. He has had no shaking chills. He states that he had some nausea after he ate his breakfast today. He states he has had some pain in his upper abdomen mainly in the epigastric area. He has had no diarrhea. He has not had a bowel movement today. No dysuria, frequency or hematuria. Physical Exam Vital Signs: Temp Pulse Resp BP Pulse Ox 99.0 F 82 18 114/70 96 02/26/17 07:37 02/26/17 07:37 02/26/17 07:37 02/26/17 07:37 02/26/17 07:37 Intake & Output 02/25/17 02/26/17 02/27/17 06:59 06:59 06:59 Intake Total 691 Output Total 1250 Balance -559 Weight 90.7 kg 92.2 kg General appearance: PRESENT: well-developed, well-nourished, other - He looks as if he does not feel well Head exam: PRESENT: atraumatic, normocephalic Eye exam: PRESENT: conjunctiva pink, EOMI, PERRLA. ABSENT: scleral icterus Ear exam: PRESENT: normal external ear exam Mouth exam: PRESENT: moist, tongue midline Respiratory exam: PRESENT: clear to auscultation kelsey. ABSENT: rales, rhonchi, wheezes Cardiovascular exam: PRESENT: RRR. ABSENT: diastolic murmur, rubs, systolic murmur GI/Abdominal exam: PRESENT: guarding, hypoactive bowel sounds, tenderness, other - He is somewhat tender to palpation with guarding in the right upper quadrant. Rectal exam: PRESENT: deferred Extremities exam: PRESENT: calf tenderness Musculoskeletal exam: PRESENT: other - No tenderness to palpation over the cervical, thoracic or lumbar spine Neurological exam: PRESENT: alert, awake, oriented to person, oriented to place , oriented to time, oriented to situation, CN II-XII grossly intact. ABSENT: motor sensory deficit Psychiatric exam: PRESENT: flat affect, unusual affect Skin exam: PRESENT: dry, intact, warm. ABSENT: cyanosis, rash Results Laboratory Results: 02/26/17 04:15 02/26/17 04:15 02/26/17 02/26/17 02/26/17 04:15 04:15 04:15 WBC 13.3 H RBC 3.79 L Hgb 13.0 L Hct 37.6 L MCV 99 H MCH 34.2 H MCHC 34.5 RDW 12.9 Plt Count 293 Seg Neutrophils % 80.4 H Lymphocytes % 8.6 L Monocytes % 9.3 Eosinophils % 1.4 Basophils % 0.3 Absolute Neutrophils 10.7 H Absolute Lymphocytes 1.1 Absolute Monocytes 1.2 Absolute Eosinophils 0.2 Absolute Basophils 0.0 Sodium 136.7 L Potassium 4.3 Chloride 100 Carbon Dioxide 25 Anion Gap 12 BUN 13 Creatinine 0.86 Est GFR ( Amer) > 60 Est GFR (Non-Af Amer) > 60 Glucose 99 Calcium 9.2 Magnesium 2.0 Total Bilirubin 1.0 AST 40 ALT 33 Alkaline Phosphatase 87 Total Protein 5.9 L Albumin 3.0 L Triglycerides 80 Cholesterol 120.55 LDL Cholesterol Direct 75 VLDL Cholesterol 16.0 HDL Cholesterol 24 L 02/25/17 02/25/17 02/25/17 08:59 15:47 21:50 Creatine Kinase CK-MB (CK-2) 0.32 0.32 0.41 Troponin I < 0.012 < 0.012 < 0.012 02/26/17 04:15 Creatine Kinase 41 L CK-MB (CK-2) Troponin I Impressions: Chest/Abdomen CTA 02/24/17 00:00 IMPRESSION: No acute cardiopulmonary findings. No evidence of pulmonary emboli. Mild aneurysmal enlargement of the ascending aorta measuring up to 3.8 cm in diameter without suspicious interval change. Chest X-Ray 02/24/17 22:38 IMPRESSION: NO ACUTE RADIOGRAPHIC FINDING IN THE CHEST. Venous Doppler Study 02/25/17 00:00 IMPRESSION: NO EVIDENCE DVT OR SVT IN EITHER LEG. Assessment & Plan - Diagnosis (1) Chest pain Qualifiers: Chest pain type: unspecified Qualified Code(s): R07.9 - Chest pain, unspecified Is this a current diagnosis for this admission?: Yes Plan: CT angiography was negative for pulmonary embolus. He did have an elevated d- dimer with history of PE in the past. No evidence for pneumonia noted. He is on po Levaquin. He continues to run a low-grade fever be somewhat tachycardic. Stress test was basically unremarkable. I am going to obtain a 2D echocardiogram. I am going to keep him in the hospital overnight. Due to concerns for underlying infection and need for further workup I am going to change the patient to an inpatient. Blood cultures 2 were obtained today. I cannot really explain his markedly elevated sed rate but I feel as if something is going on. Also will get a CT scan of the abdomen and pelvis today to make sure he does not have anything going on with his gallbladder mimicking chest pain. We will recheck labs in the morning. (2) Leg pain Plan: He states this was the main reason he came to the hospital. He states the leg pain had gotten so bad that he was unable to walk. He is quite tender to palpation in the calf popliteal area in the back of his thighs. He has a history of DVT with an elevated d-dimer. Bilateral venous Dopplers were negative.Of note he did state that the pain runs along the veins in his legs and it was quite painful to have the test done. In light of his low-grade fevers, leg pains, known aortic aneurysm which is quite mild it makes you wonder whether the patient possibly could have some vasculitis I will obtain a rheumatoid factor, VASILIY, ANCA and anti-CCP antibodies for completeness. (3) Leukocytosis Is this a current diagnosis for this admission?: Yes Plan: He continues to have persistent leukocytosis and low-grade fevers. We will screen him for vasculitis as above. Blood cultures were drawn today. He is having a 2D echocardiogram performed today. He does have a markedly elevated sed rate. Workup thus far has been negative. For now because he does have a cough we will continue p.o. Levaquin. (4) Hypertension Qualifiers: Hypertension type: essential hypertension Qualified Code(s): I10 - Essential (primary) hypertension Is this a current diagnosis for this admission?: Yes Plan: Stable (5) Seborrheic dermatitis Is this a current diagnosis for this admission?: Yes Plan: Continue current regimen - Time Time Spent with patient: 25-34 minutes - Inpatient Certification Medical Necessity: Other - The patient's status will be changed from observation to admission. The patient continues to have persistent low-grade fevers and leukocytosis with a markedly elevated sed rate. Further workup is necessary.
--- NOTE | 2017-02-26 12:51 | XCELERA REPORT ---
[address] [address] Transthoracic Echocardiogram Report Name: CHELY ALVAREZ Age: 51 yrs Gender: Male : 1965 Patient Status: Inpatient Patient Location: [address] [place], [place] [id number] Study Date: 02/26/2017 10:21 AM Height: 72 in Weight: 203 lb BSA: 2.1 m2 Procedure: A complete two-dimensional transthoracic echocardiogram was performed (2D, M-mode, spectral and color flow Doppler). The study was technically adequate with some images being suboptimal in quality. Reason For Study: fevers chest pain Ordering Physician: ZHEN CHANEY Performed By: Jillian Dash Interpretation Summary The left ventricular ejection fraction is normal. There is mild concentric left ventricular hypertrophy. Doppler measurements suggest pseudonormalized left ventricular relaxation, which is associated with grade II/IV or mild to moderate diastolic dysfunction The left ventricle is grossly normal size. No regional wall motion abnormalities noted. The right ventricular systolic function is normal. Borderline left atrial enlargement. The right atrium is normal. There is a trace amount of mitral regurgitation There is no mitral valve stenosis. No aortic regurgitation is present. There is no aortic valve stenosis There is a trace or physiologic amount of tricuspid regurgitation Tricuspid regurgitation jet envelope not well defined to measure RV systolic pressure accurately. The aortic root is not well visualized. The inferior vena cava was not well visualized There is no pericardial effusion. MMode/2D Measurements & Calculations RVDd: 3.1 cm LVIDd: 4.9 cm FS: 40.6 % Ao root diam: 3.0 cm IVSd: 0.99 cm LVIDs: 2.9 cm EDV(Teich): 113.2 ml LVPWd: 1.0 cm ESV(Teich): 32.7 ml Ao root area: 7.0 cm2 EF(Teich): 71.1 % LA dimension: 3.4 cm Doppler Measurements & Calculations MV E max chepe: MV P1/2t max chepe: Ao V2 max: LV V1 max P.9 cm/sec 87.4 cm/sec 159.6 cm/sec 8.2 mmHg MV A max chepe: MV P1/2t: 59.1 msec Ao max PG: LV V1 max: 84.9 cm/sec 10.2 mmHg 143.1 cm/sec MV E/A: 1.0 MVA(P1/2t): 3.7 cm2 MV dec slope: 432.8 cm/sec2 PA V2 max: PI end-d chepe: 81.9 cm/sec 88.2 cm/sec PA max P.7 mmHg Left Ventricle The left ventricle is grossly normal size. There is mild concentric left ventricular hypertrophy. The left ventricular ejection fraction is normal. Doppler measurements suggest pseudonormalized left ventricular relaxation, which is associated with grade II/IV or mild to moderate diastolic dysfunction. No regional wall motion abnormalities noted. Right Ventricle The right ventricle is grossly normal size. There is normal right ventricular wall thickness. The right ventricular systolic function is normal. Atria The right atrium is normal. Borderline left atrial enlargement. Interarterial septum not well visualized and not well dopplered. Cannot comment on ASD/PFO presence. Mitral Valve The mitral valve is grossly normal. There is no mitral valve stenosis. There is a trace amount of mitral regurgitation. Aortic Valve The aortic valve is not well visualized secondary to technical limitations. There is no aortic valve stenosis. No aortic regurgitation is present. Tricuspid Valve The tricuspid valve is not well visualized, but is grossly normal. There is no tricuspid stenosis. There is a trace or physiologic amount of tricuspid regurgitation. Tricuspid regurgitation jet envelope not well defined to measure RV systolic pressure accurately. Pulmonic Valve The pulmonic valve is not well visualized. Great Vessels The aortic root is not well visualized. The inferior vena cava was not well visualized. Effusions There is no pericardial effusion. : ZHEN CHANEY > Gibran Pro
--- NOTE | 2017-02-26 16:20 | RADIOLOGY REPORT (SQ) ---
EXAM DESCRIPTION: CT ABD/PELVIS WITH IV ONLY COMPLETED DATE/TIME: 02/26/2017 3:36 pm REASON FOR STUDY: Cdiff, abd pain, r/ retroperitoneal bleed COMPARISON: 02/22/2016 CT abdomen pelvis TECHNIQUE: CT scan of the abdomen and pelvis performed using helical scanning technique with dynamic intravenous contrast injection. No oral contrast. Images reviewed with lung, soft tissue, and bone windows. Reconstructed coronal and sagittal MPR images reviewed. Delayed images for evaluation of the urinary system also acquired. All images stored on PACS. All CT scanners at this facility use dose modulation, iterative reconstruction, and/or weight based d osing when appropriate to reduce radiation dose to as low as reasonably achievable (ALARA). [facility]: Dose Right [facility]: CareDose [facility]: Dose Right [facility]: Teradose 4D [facility]: Bancore A/S CONTRAST TYPE AND DOSE: contrast/concentration: Isovue 370.00 mg/ml; Total Contrast Delivered: 98.9 ml; Total Saline Delivered: 72.0 ml RENAL FUNCTION: Creatinine 0.86 RADIATION DOSE: Up-to-date CT equipment and radiation dose reduction techniques were employed. CTDIv ol: 6.9 - 8.3 mGy. DLP: 851 mGy-cm.. LIMITATIONS: None. FINDINGS: LOWER CHEST: Minimal bibasilar atelectasis. LIVER: Normal size. No masses. No dilated ducts. SPLEEN: Normal size. No focal lesions. PANCREAS: No masses. No significant calcifications. No adjacent inflammation or peripancreatic fluid collections. Pancreatic duct not dilated. GALLBLADDER: No identified stones by CT criteria. No inflammatory changes to suggest cholecystitis. ADRENAL GLANDS: No significant masses or asymmetry. RIGHT KIDNEY AND URETER: No solid masses. 2 mm right lower pole intrarenal nonobstructive stone. . No hydronephrosis or hydroureter. LEFT KIDNEY AND URETER: No solid masses. Cortical scarring left mid pole kidney. Less than 2 mm int rarenal nonobstructive stones. No hydronephrosis or hydroureter. AORTA AND VESSELS: No aneurysm. No dissection. Renal arteries, SMA, celiac without stenosis. Left re troaortic renal vein an anatomic variant. RETROPERITONEUM: No retroperitoneal adenopathy, hemorrhage or masses. BOWEL AND PERITONEAL CAVITY: No masses or inflammatory changes. No free fluid or peritoneal masses. APPENDIX: Normal. PELVIS: No mass. No free fluid. Normal bladder. ABDOMINAL WALL: No masses. Fat containing umbilical hernia. BONES: No significant or acute findings. OTHER: No other significant finding. IMPRESSION: No acute findings. Tiny bilateral intrarenal nonobstructive stones. TECHNICAL DOCUMENTATION: JOB ID: [id number] Quality ID # [id number]: Final reports with documentation of one or more dose reduction techniques (e.g., Au tomated exposure control, adjustment of the mA and/or kV according to patient size, use of iterative reconstruction technique) 2010 [employer]- All Rights Reserved
[2017-02-26] MEDS: ATORVASTATIN CALCIUM 80 MG TABLET PO SCH (21:00)
[2017-02-27 04:37] LABS: ABSOLUTE EOSINOPHILS # (AUTO) 0.3 10^3/uL (0.0-0.6); ABSOLUTE LYMPHOCYTES (AUTO) 0.9 10^3/uL (0.5-4.7); ABSOLUTE MONOCYTES (AUTO) 1.3 10^3/uL (0.1-1.4); ABSOLUTE NEUT (AUTO) 9.8 10^3/uL (1.7-8.2); BASOPHILS % (AUTO) 0.3 % (0-2); EOSINOPHILS % (AUTO) 2.4 % (0-6); HEMOGLOBIN 12.4 g/dL (13.5-17.0); HGB HCT DIFFERENCE 1.2; MEAN CORPUSCULAR HEMOGLOBIN 34.1 pg (27.0-33.4); MEAN CORPUSCULAR HGB CONC 34.5 g/dL (32.0-36.0); MEAN CORPUSCULAR VOLUME 99 fl (80-97); MONOCYTES % (AUTO) 10.5 % (3-13); RED BLOOD COUNT 3.64 10^6/uL (4.35-5.55); RED CELL DISTRIBUTION WIDTH 13.2 % (11.5-14.0); SEGMENTED NEUTROPHILS % (AUTO) 79.8 % (42-78); WHITE BLOOD COUNT 12.3 10^3/uL (4.0-10.5)
[2017-02-27 04:56] LABS: ALANINE AMINOTRANSFERASE 49 U/L (21-72); ALBUMIN 2.9 g/dL (3.5-5.0); ALKALINE PHOSPHATASE 94 U/L (38-126); ANION GAP 11 (5-19); ASPARTATE AMINO TRANSFERASE 53 U/L (17-59); BILIRUBIN,DIRECT 0.4 mg/dL (0.0-0.4); BILIRUBIN,TOTAL 0.6 mg/dL (0.2-1.3); BLOOD UREA NITROGEN 13 mg/dL (7-20); CARBON DIOXIDE 25 mmol/L (22-30); CHLORIDE 100 mmol/L (98-107); CREATININE RESULT 0.84 mg/dL (0.52-1.25); GLUCOSE 102 mg/dL (75-110); MAGNESIUM 2.1 mg/dL (1.6-2.3); POTASSIUM 4.1 mmol/L (3.6-5.0); SODIUM 136.4 mmol/L (137-145); TOTAL PROTEIN 5.6 g/dL (6.3-8.2)
[2017-02-27] MEDS: HEPARIN SOD (PORCINE) 5,000 UNIT/ML 1 ML SYRINGE SUBCUT SCH ×3 (05:35→22:47)
[2017-02-27] MEDS: LEVOFLOXACIN 750 MG/D5W RTU 750 MG/150 ML RTUPB IV SCH (05:35)
[2017-02-27] MEDS ORDERED: HYDROMORPHONE HCL INJ/PF 2 MG/ML AMPULE IV PRN (06:29)
[2017-02-27] MEDS ORDERED: KETOROLAC TROMETHAMINE INJ/PF 30 MG/1 ML SDV IV ONE (06:30)
--- NOTE | 2017-02-27 09:08 | PROGRESS NOTE E ---
Progress Note NAME: CHELY FUENTES : 1965 AGE: 51Y DATE: 02/27/2017 ROOM: 420 SUBJECTIVE: Mr. Chely Fuentes is a pleasant 51-year-old male, who was admitted to the hospital due to chest pain, shortness of breath. He has had pulmonary embolism in the past. The patient had a Cardiolite stress test performed. A 2D echocardiogram was also done. CT angiogram was negative. He continued to have a fever, leukocytosis and tachycardia. Blood pressure was otherwise negative. Sputum cultures are still pending and he is on broad coverage antibiotic. He is on Levaquin IV. OBJECTIVE: GENERAL: Patient lying in bed, comfortable. Not in distress. VITALS SIGNS: Temperature 99.6, heart rate 85, respiratory 20, blood pressure 107/60. HEENT: Normocephalic, atraumatic. Pupils round and reactive to light and accommodation bilaterally. Extraocular movements intact. Ears: Tympanic membranes intact bilaterally. No discharge from the ears. No discharge from the nose. NECK: Supple. No increased JVD. No thyromegaly. No lymphadenopathy. CARDIOVASCULAR: Normal S1, S2. Regular rate and rhythm. No murmur. No gallop. RESPIRATORY: Lungs clear. ABDOMEN: Soft and nontender. MUSCULOSKELETAL: No edema. NEUROLOGIC: Awake, alert. SKIN: No rash. LABORATORY: White blood count 12, hemoglobin 12, creatinine 0.8. ASSESSMENT: 1. CHEST PAIN. All workup was negative. Cardiac enzymes were negative. Normal CT angiogram, no pulmonary emboli. 2. LEUKOCYTOSIS, POSSIBLE SEPSIS. Continues with fever and leukocytosis. Continue antibiotic, Levaquin. 3. HYPERTENSION, CONTROLLED. 4. *------* DERMATITIS. PLAN: Continue IV antibiotics. MEDICAL NECESSITY: The patient needs to stay we get the final result of blood culture and until the fever subsides. Probably discharge him home in 1-2 days. DICTATING PHYSICIAN: JARAD ZARCO M.D. [id number] PHY#: [id number] ID: [id number] JOB#: [id number] ACCT: [id number] cc: >
[2017-02-27] MEDS: METOPROLOL SUCCINATE 25 MG TAB.SR.24H PO SCH (09:31)
[2017-02-27] MEDS: TAMSULOSIN HCL 0.4 MG CAP.SR.24H PO SCH (09:31)
[2017-02-27] MEDS: KETOROLAC TROMETHAMINE INJ/PF 30 MG/1 ML SDV IV PRN ×2 (12:42→22:47)
[2017-02-27 13:38] LABS: JO-1 ANTIBODY (ANACOMP) <0.2 AI (0.0-0.9)
[2017-02-27] MEDS ORDERED: KETOROLAC TROMETHAMINE INJ/PF 30 MG/1 ML SDV IV SCH (14:00)
[2017-02-27] MEDS ORDERED: ONDANSETRON HCL INJ/PF 4 MG/2 ML SDV IV PRN (22:44)
[2017-02-27] MEDS: ATORVASTATIN CALCIUM 80 MG TABLET PO SCH (22:47)
[2017-02-28 04:46] LABS: ABSOLUTE BASOPHILS # (AUTO) 0.1 10^3/uL (0.0-0.2); ABSOLUTE EOSINOPHILS # (AUTO) 0.2 10^3/uL (0.0-0.6); ABSOLUTE MONOCYTES (AUTO) 1.3 10^3/uL (0.1-1.4); ABSOLUTE NEUT (AUTO) 10.1 10^3/uL (1.7-8.2); BASOPHILS % (AUTO) 0.5 % (0-2); EOSINOPHILS % (AUTO) 1.7 % (0-6); HEMATOCRIT 36.5 % (37.9-51.0); HEMOGLOBIN 12.7 g/dL (13.5-17.0); HGB HCT DIFFERENCE 1.6; LYMPHOCYTES % (AUTO) 7.9 % (13-45); MEAN CORPUSCULAR HEMOGLOBIN 34.3 pg (27.0-33.4); MEAN CORPUSCULAR HGB CONC 34.9 g/dL (32.0-36.0); MEAN CORPUSCULAR VOLUME 98 fl (80-97); MONOCYTES % (AUTO) 10.5 % (3-13); RED BLOOD COUNT 3.72 10^6/uL (4.35-5.55); RED CELL DISTRIBUTION WIDTH 13.4 % (11.5-14.0); SEGMENTED NEUTROPHILS % (AUTO) 79.4 % (42-78); WHITE BLOOD COUNT 12.8 10^3/uL (4.0-10.5)
[2017-02-28 05:01] LABS: ALBUMIN 2.8 g/dL (3.5-5.0); ANION GAP 11 (5-19); BLOOD UREA NITROGEN 12 mg/dL (7-20); CARBON DIOXIDE 26 mmol/L (22-30); CHLORIDE 102 mmol/L (98-107); CREATININE RESULT 0.91 mg/dL (0.52-1.25); GLUCOSE 108 mg/dL (75-110); PHOSPHORUS 4.4 mg/dL (2.5-4.5); POTASSIUM 4.3 mmol/L (3.6-5.0); SODIUM 138.6 mmol/L (137-145)
[2017-02-28] MEDS: LEVOFLOXACIN 750 MG/D5W RTU 750 MG/150 ML RTUPB IV SCH (05:51)
[2017-02-28] MEDS: HEPARIN SOD (PORCINE) 5,000 UNIT/ML 1 ML SYRINGE SUBCUT SCH (05:52)
[2017-02-28] MEDS ORDERED: ACETAMINOPHEN 325 MG TABLET PO PRN (08:45)
[2017-02-28] MEDS: METOPROLOL SUCCINATE 25 MG TAB.SR.24H PO SCH (09:43)
[2017-02-28] MEDS: TAMSULOSIN HCL 0.4 MG CAP.SR.24H PO SCH (09:44)
[2017-02-28] MEDS ORDERED: PROMETHAZINE HCL 25 MG TABLET PO ONE (10:00)
[2017-02-28 10:19] VITALS: BP 117/77
[2017-02-28 11:42] LABS: COMPLEMENT C3 176 mg/dL (82-167)
--- NOTE | 2017-02-28 12:33 | DISCHARGE SUMMARY E ---
Discharge Summary NAME: CHELY ALVAREZ : 1965 AGE: 51Y ADMITTED: 02/25/2017 DISCHARGED: 02/28/2017 ADMISSION DIAGNOSES: 1. Chest pain. 2. Leukocytosis. 3. Seborrheic dermatitis. DISCHARGE DIAGNOSES: 1. Chest pain, ruled out. 2. Sepsis, unknown source, resolved. 3. Fever, resolved. IMAGING DATA: CT scan of abdomen and pelvis was unremarkable. Cardiolite stress test was negative. CT angiogram was unremarkable, no PE. CT abdomen and pelvis was normal. Echocardiogram was normal. CONSULTATIONS: ROSALIND ARTHUR M.D. HOSPITAL COURSE: The patient is a 51-year-old male with a past medical history of depression and anxiety, hypertension, pulmonary embolism in the past, not on anticoagulation, 4 cm thoracic aortic aneurysm, benign prostatic hyperplasia. He was brought by [facility] and he is in custody of the state. He had chest pain and he had a work up for chest pain. PE was ruled out and cardiac attack was ruled out. He was seen by Cardiology. He continued to have a fever here and his urine culture was unremarkable, blood culture was unremarkable. Chest x-ray did not show any pneumonia. He was getting IV fluids and IV Levaquin. Today, he is feeling much better. His fever is improved. His max fever is 99. The patient will be discharged back home today. PHYSICAL EXAMINATION UPON DISCHARGE: GENERAL: The patient is lying in bed, comfortable, not in distress. VITAL SIGNS: Temperature 99.6, heart rate is 87, respiratory is 18, blood pressure is 123/71, saturation 97%. HEENT: Normocephalic, atraumatic. Pupils are round and reactive to light and accommodation bilaterally. Extraocular movements intact. Ears: Tympanic membranes intact bilaterally. No discharge from the ears. No discharge from the nose. NECK: Supple. No increased JVD. No thyromegaly. No lymphadenopathy. CARDIOVASCULAR: Normal S1 and S2. Regular rate and rhythm. No murmur. No gallop. RESPIRATORY: Lungs clear. ABDOMEN: Soft and nontender. MUSCULOSKELETAL: No edema. NEUROLOGIC: Awake, alert. LABORATORY DATA: White blood count is 12.8, hemoglobin is 12.7. Sodium 138, potassium 4.3, creatinine 0.9. DISCHARGE INSTRUCTIONS: Discharge the patient back home. Follow up with the primary care physician in 1 week. Diet: Cardiac diet. Activity: As tolerated. DISCHARGE MEDICATIONS: 1. Lipitor 80 mg daily. 2. Levaquin 750 mg p.o. daily. 3. Toprol 25 mg daily. 4. Flomax 0.4 mg daily. 5. Tylenol p.r.n. 6. Zofran p.r.n. DICTATING PHYSICIAN: JARAD ZARCO M.D. [id number] PHY#: [id number] ID: [id number] JOB#: [id number] ACCT: [id number] cc:Ruben RITCHIE M.D. > MTDD
[2017-03-01] MEDS ORDERED: LEVOFLOXACIN 750 MG TABLET PO SCH (10:00)
[2017-03-02 16:39] LABS: ANTIPROTEINASE 3 (PR-3) AB <3.5 U/mL (0.0-3.5); CYTOPLASMIC (C-ANCA) <1:20 titer (Neg:<1:20)
--- NOTE | 2017-03-05 15:32 | Physician Advisory Note ---
Physician Advisor ProgressNote .: [facility] for [facility]. Physician Advisor Statement: What we need documented in DCSummary addendum, if attending agrees: 1. "CP, ruled out for MT/PE, most likely due to ____" (The CP itself wasn't ruled out.) [? gastritis, given the N/V & epigastric pain/RUQ tenderness at times? - or - ? acute bronchitis, given the SOB/cough & low O2 sats, & mild hyponatremia? , - or - ? pleurisy due to ___? , - or - ...] 2. "Sepsis, present on admission, source not found but suspect may have been due to [Acute bronchitis?, vasculitis?, ...?], evidenced by persistent tachycardia, tachypnea, leukocytosis, intermittent fevers, hypotension with initial MAP 57 for EMS (BP 90/40), and P/F ratio of 286 (O2 sat 95% on 2L O2)" - If IVF were given, please document this (this reviewer doesn't see that). Was sepsis dx was more of a retrospective dx in this case (since no lactate level, IVF)? - If attending isn't positive the pt had sepsis, he could document "suspected bacterial infection of unknown etiology" instead to give dx reason for pt needing several days Inpt status with associated w/u for source without IVF/ lactate levels etc. Thanks! CK Addendum: spoke w/discharging attending. He reports he did believe pt was septic this admission, & that sepsis was present on admission, but he was just not able to determine a definite source despite best efforts. He states the patient was tx'd for sepsis with IV Levaquin. Asked him to address above needs for specificity. Patient did meet Sepsis-2 criteria for dx. If the decreased P/F ratio was due to sepsis rather than underlying acute or chronic lung problem, then patient met Sepsis-3 criteria for the dx. Pt had no chronic lung dz reportedly.
== END 2017-02-28 11:00 | DRG 872 ==
LOC: ER 22:31 → UNDOADMOB 02-25 03:41 → EH 02-25 03:41 → 4W 02-25 05:15 → EH 02-25 05:15 → 4W 02-25 05:48 → OBSVTOIN 02-25 05:48
PROVIDERS: ADMIT Internal Medicine; ATTEND Internal Medicine
DX: A41.9 Sepsis, unspecified organism (principal); L21.9 Seborrheic dermatitis, unspecified; Z86.711 Personal history of pulmonary embolism; R07.89 Other chest pain; M79.605 Pain in left leg; M79.604 Pain in right leg; I10 Essential (primary) hypertension; F32.9 Major depressive disorder, single episode, unspecified; N40.0 Benign prostatic hyperplasia without lower urinary tract symptoms; I71.2 Thoracic aortic aneurysm, without rupture; F43.10 Post-traumatic stress disorder, unspecified; Z96.698 Presence of other orthopedic joint implants; R79.1 Abnormal coagulation profile; Z88.0 Allergy status to penicillin; Z88.6 Allergy status to analgesic agent
CPT/HCPCS: 36415; 71010; 71275; 74177; 78452; 80048; 80053; 80061; 80069; 80076; 81001; 82550; 82553; 83516; 83735; 84484; 85025; 85379; 85652; 86160; 86225; 86235; 86256; 86430; 87040; 87086; 93005; 93010; 93017; 93306; 93970; 99285; A9500; J0280; J1644; J1885; J1956; J2405; J2785; J3490; Q9969

== ENCOUNTER 2017-03-18 14:27 | Inpatient (IN) | payer OTHER ==
[2017-03-18 20:29] LABS: ABSOLUTE BASOPHILS # (AUTO) 0.1 10^3/uL (0.0-0.2); ABSOLUTE EOSINOPHILS # (AUTO) 0.2 10^3/uL (0.0-0.6); ABSOLUTE LYMPHOCYTES (AUTO) 1.5 10^3/uL (0.5-4.7); ABSOLUTE MONOCYTES (AUTO) 1.3 10^3/uL (0.1-1.4); ABSOLUTE NEUT (AUTO) 14.7 10^3/uL (1.7-8.2); BASOPHILS % (AUTO) 0.3 % (0-2); HEMATOCRIT 33.4 % (37.9-51.0); HEMOGLOBIN 11.4 g/dL (13.5-17.0); HGB HCT DIFFERENCE 0.8; LYMPHOCYTES % (AUTO) 8.7 % (13-45); MEAN CORPUSCULAR HEMOGLOBIN 32.6 pg (27.0-33.4); MEAN CORPUSCULAR HGB CONC 34.2 g/dL (32.0-36.0); MEAN CORPUSCULAR VOLUME 96 fl (80-97); MONOCYTES % (AUTO) 7.2 % (3-13); RED CELL DISTRIBUTION WIDTH 14.5 % (11.5-14.0); SEGMENTED NEUTROPHILS % (AUTO) 82.8 % (42-78); WHITE BLOOD COUNT 17.7 10^3/uL (4.0-10.5)
[2017-03-18 20:46] LABS: ANION GAP 9 (5-19); BLOOD UREA NITROGEN 9 mg/dL (7-20); CALCIUM 8.2 mg/dL (8.4-10.2); CARBON DIOXIDE 27 mmol/L (22-30); CHLORIDE 96 mmol/L (98-107); CREATININE RESULT 0.65 mg/dL (0.52-1.25); GLUCOSE 104 mg/dL (75-110); MAGNESIUM 1.9 mg/dL (1.6-2.3); PHOSPHORUS 3.7 mg/dL (2.5-4.5); POTASSIUM 4.5 mmol/L (3.6-5.0); SODIUM 132.2 mmol/L (137-145)
[2017-03-18] MEDS: ARIPIPRAZOLE 5 MG TABLET PO SCH (22:56)
[2017-03-18] MEDS: TAMSULOSIN HCL 0.4 MG CAP.SR.24H PO SCH (22:56)
[2017-03-18] MEDS: HEPARIN SOD (PORCINE) 5,000 UNIT/ML 1 ML SYRINGE SUBCUT SCH (22:56)
[2017-03-18] MEDS: METOPROLOL TARTRATE 25 MG TABLET PO SCH (22:56)
[2017-03-18] MEDS: GABAPENTIN 400 MG CAPSULE PO SCH (22:56)
[2017-03-18] MEDS: IBUPROFEN 600 MG TABLET PO PRN (23:02)
--- NOTE | 2017-03-18 23:27 | PDOC H&P ---
History of Present Illness Admission Date/PCP: 03/18/17 17:54 History of Present Illness: CHELY ALVAREZ is a 51 year old male who was transferred from here to [facility] for neurologic evaluation. Upon review of patient's discharge summary, it appears as though his workup there was unremarkable with the exception of a mildly low zinc and vitamin D level for which he was started on replacement. They do note the patient does have ongoing leukocytosis and recommend workup for malignancy. Patient will be on 23 hour observation. Past Medical History Cardiac Medical History: Reports: Hyperlipidema, Hypertension Neurological Medical History: Reports: Migraine Psychiatric Medical History: Reports: Post Traumatic Stress Disorder Denies: Depression Past Surgical History Past Surgical History: Reports: Orthopedic Surgery - tmj joint replacement, knee , left shoulder reconstruction, Other - Back surgery Social History Smoking Status: Former Smoker Frequency of Alcohol Use: None Hx Recreational Drug Use: No Drugs: None Hx Prescription Drug Abuse: No - Advance Directive Resuscitation Status: Full Code Family History Family History: Hypertension, Malignancy Parental Family History Reviewed: Yes Children Family History Reviewed: Yes Sibling(s) Family History Reviewed.: Yes Medication/Allergy Home Medications: Aripiprazole [Abilify 10 mg Tablet] 10 mg PO QHS 03/18/17 Atorvastatin Calcium [Lipitor 80 mg Tablet] 80 mg PO QHS 03/18/17 Docusate Sodium [Colace 100 mg Capsule] 100 mg PO DAILY 03/18/17 Enoxaparin Sodium [Lovenox Inj 40 mg/0.4 ml Disp.syrin] 40 mg SQ QAM 03/18/17 Gabapentin [Neurontin 400 mg Capsule] 400 mg PO Q8 03/18/17 Meclizine HCl [Antivert 12.5 mg Tablet] 12.5 mg PO Q8HP PRN 03/18/17 Metoprolol Tartrate [Lopressor 25 mg Tablet] 25 mg PO Q12 03/18/17 Ondansetron [Zofran Odt 4 mg Tablet] 4 mg PO Q8HP PRN 03/18/17 Polyethylene Glycol 3350 [Miralax Powder 17 gm/Packet] 17 gm PO DAILY 03/18/17 Scopolamine Hydrobromide [Transderm-Scop 1.5 mg Patch] 1 patch TD Q3DAYS@1000 Sennosides [Senokot] 2 tab PO QHS 03/18/17 Tamsulosin HCl [Flomax 0.4 mg Cap.sr] 0.4 mg PO QHS 03/18/17 Tramadol HCl [Ultram 50 mg Tablet] 50 mg PO Q6HP PRN 03/18/17 Vitamin E 100 units PO DAILY 03/18/17 Zinc Sulfate [Zinc-220 Capsule] 220 mg PO DAILY 03/18/17 Allergies/Adverse Reactions: codeine [Codeine] Allergy (Verified 01/01/14 20:19) oxycodone HCl [From Percocet] Allergy (Verified 03/10/17 01:58) Penicillins Allergy (Verified 01/01/14 20:19) Review of Systems Constitutional: PRESENT: anorexia, fatigue, fever(s). ABSENT: chills, headache( s), weight gain, weight loss Eyes: ABSENT: visual disturbances Ears: ABSENT: hearing changes Cardiovascular: ABSENT: chest pain, dyspnea on exertion, edema, orthropnea, palpitations Respiratory: ABSENT: cough, hemoptysis Gastrointestinal: ABSENT: abdominal pain, constipation, diarrhea, hematemesis, hematochezia, nausea, vomiting Genitourinary: ABSENT: dysuria, hematuria Musculoskeletal: ABSENT: joint swelling Integumentary: ABSENT: rash, wounds Neurological: PRESENT: paresthesias, weakness. ABSENT: abnormal gait, abnormal movements, abnormal speech, confusion, dizziness, focal weakness, syncope Psychiatric: ABSENT: anxiety, depression, homidical ideation, suicidal ideation Endocrine: ABSENT: cold intolerance, heat intolerance, polydipsia, polyuria Hematologic/Lymphatic: ABSENT: easy bleeding, easy bruising Physical Exam Vital Signs: Temp Pulse Resp BP Pulse Ox 98.2 F 112 H 17 113/74 94 03/18/17 22:00 03/18/17 22:00 03/18/17 22:00 03/18/17 22:00 03/18/17 22:00 Intake & Output 03/17/17 03/18/17 03/19/17 06:59 06:59 06:59 Intake Total 350 Output Total 900 Balance -550 General appearance: PRESENT: no acute distress, well-developed, well-nourished Head exam: PRESENT: atraumatic, normocephalic Eye exam: PRESENT: conjunctiva pink, EOMI, PERRLA. ABSENT: scleral icterus Ear exam: PRESENT: normal external ear exam Mouth exam: PRESENT: moist, tongue midline Neck exam: ABSENT: JVD, lymphadenopathy, thyromegaly, tracheal deviation Respiratory exam: PRESENT: clear to auscultation kelsey. ABSENT: rales, rhonchi, wheezes Cardiovascular exam: PRESENT: RRR, +S1, +S2. ABSENT: diastolic murmur, rubs, systolic murmur Pulses: PRESENT: normal dorsalis pedis pul Vascular exam: PRESENT: normal capillary refill GI/Abdominal exam: PRESENT: normal bowel sounds, soft. ABSENT: distended, guarding, mass, organolmegaly, rebound, tenderness Rectal exam: PRESENT: deferred Extremities exam: PRESENT: full ROM. ABSENT: calf tenderness, clubbing, pedal edema Neurological exam: PRESENT: alert, awake, oriented to person, oriented to place , oriented to time, oriented to situation, CN II-XII grossly intact. ABSENT: motor sensory deficit Psychiatric exam: PRESENT: appropriate affect, normal mood. ABSENT: homicidal ideation, suicidal ideation Skin exam: PRESENT: dry, intact, warm. ABSENT: cyanosis, rash Results Laboratory Results: 03/18/17 20:12 03/18/17 20:12 03/18/17 03/18/17 20:12 20:12 WBC 17.7 H RBC 3.50 L Hgb 11.4 L Hct 33.4 L MCV 96 MCH 32.6 MCHC 34.2 RDW 14.5 H Plt Count 537 H Seg Neutrophils % 82.8 H Lymphocytes % 8.7 L Monocytes % 7.2 Eosinophils % 1.0 Basophils % 0.3 Absolute Neutrophils 14.7 H Absolute Lymphocytes 1.5 Absolute Monocytes 1.3 Absolute Eosinophils 0.2 Absolute Basophils 0.1 Sodium 132.2 L Potassium 4.5 Chloride 96 L Carbon Dioxide 27 Anion Gap 9 BUN 9 Creatinine 0.65 Est GFR ( Amer) > 60 Est GFR (Non-Af Amer) > 60 Glucose 104 Calcium 8.2 L Phosphorus 3.7 Magnesium 1.9 Assessment & Plan - Diagnosis (1) Leukocytosis Qualifiers: Leukocytosis type: unspecified Qualified Code(s): D72.829 - Elevated white blood cell count, unspecified Is this a current diagnosis for this admission?: Yes Plan: At this time, I feel the patient should have workup for possible malignancy as an outpatient. Patient has no focal signs for which we can start. (2) Lower extremity weakness Qualifiers: Laterality: bilateral Qualified Code(s): R29.898 - Other symptoms and signs involving the musculoskeletal system Is this a current diagnosis for this admission?: Yes Plan: This has improved. According to [facility] notes patient was able to ambulate patient reports she is ambulating but with some difficulty. Will consult physical therapy. (3) Thoracic aortic aneurysm without rupture Is this a current diagnosis for this admission?: Yes Plan: No need for intervention - Time Time Spent: 30 to 50 Minutes Medications reviewed and adjusted accordingly: Yes Anticipated discharge: Home Within: within 24 hours - Inpatient Certification Based on my medical assessment, after consideration of the patient's comorbidities, presenting symptoms, or acuity I expect that the services needed warrant INPATIENT care.: No I certify that my determination is in accordance with my understanding of Medicare's requirements for reasonable and necessary INPATIENT services [42 CFR 412.3e].: No Post Hospital 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
[2017-03-19] MEDS: HEPARIN SOD (PORCINE) 5,000 UNIT/ML 1 ML SYRINGE SUBCUT SCH ×3 (06:00→22:35)
[2017-03-19] MEDS: GABAPENTIN 400 MG CAPSULE PO SCH ×3 (06:00→22:34)
[2017-03-19] MEDS ORDERED: VITAMIN E 100 UNIT PO SCH (10:00)
[2017-03-19] MEDS: ENOXAPARIN SODIUM INJ 40 MG/0.4 ML DISP.SYRIN SUBCUT SCH (10:01)
[2017-03-19] MEDS: ZINC SULFATE 220 MG CAPSULE PO SCH (10:02)
[2017-03-19] MEDS: METOPROLOL TARTRATE 25 MG TABLET PO SCH ×2 (10:03→22:35)
[2017-03-19] MEDS: POLYETHYLENE GLYCOL 3350 POWDER 17 GM/1 PACKET PO SCH (10:03)
[2017-03-19] MEDS: IBUPROFEN 600 MG TABLET PO PRN (10:04)
--- NOTE | 2017-03-19 11:07 | PDOC PROGRESS REPORT ---
Subjective Progress Note for:: 03/19/17 Subjective:: This is a follow-up visit for lower extremity weakness. The patient was initially admitted here earlier in the month for lower extremity weakness. A major workup. Including scans of the patient's back to look for paraspinal abscesses. Apparently the patient has had an elevated white count. Therefore, infection was Physical Exam Vital Signs: Temp Pulse Resp BP Pulse Ox 97.9 F 80 20 118/76 98 03/19/17 08:00 03/19/17 08:00 03/19/17 08:00 03/19/17 08:00 03/19/17 08:00 Intake & Output 03/18/17 03/19/17 03/20/17 06:59 06:59 06:59 Intake Total 353 Output Total 900 Balance -547 Weight 88.5 kg GENERAL: This is a well-developed appearing white male resting in bed currently in no acute distress. HEART: Regular rate and rhythm. No murmurs, rubs or gallops. LUNGS: Clear to auscultation bilaterally with equal rise and fall of the chest. ABDOMEN: Soft, nontender, nondistended with normoactive bowel sounds EXTREMETIES: No clubbing, cyanosis or edema. 2+ peripheral pulses bilaterally. NEURO: Awake, alert and oriented 3. Cranial nerves II through XII are grossly intact. Strength is 4 out of 5 in the lower extremities. Results Laboratory Results: 03/18/17 20:12 03/18/17 20:12 03/18/17 03/18/17 20:12 20:12 WBC 17.7 H RBC 3.50 L Hgb 11.4 L Hct 33.4 L MCV 96 MCH 32.6 MCHC 34.2 RDW 14.5 H Plt Count 537 H Seg Neutrophils % 82.8 H Lymphocytes % 8.7 L Monocytes % 7.2 Eosinophils % 1.0 Basophils % 0.3 Absolute Neutrophils 14.7 H Absolute Lymphocytes 1.5 Absolute Monocytes 1.3 Absolute Eosinophils 0.2 Absolute Basophils 0.1 Sodium 132.2 L Potassium 4.5 Chloride 96 L Carbon Dioxide 27 Anion Gap 9 BUN 9 Creatinine 0.65 Est GFR ( Amer) > 60 Est GFR (Non-Af Amer) > 60 Glucose 104 Calcium 8.2 L Phosphorus 3.7 Magnesium 1.9 Assessment & Plan - Diagnosis (1) Leukocytosis Qualifiers: Leukocytosis type: unspecified Qualified Code(s): D72.829 - Elevated white blood cell count, unspecified Is this a current diagnosis for this admission?: Yes Plan: Patient's white count is currently unexplained. There is no evidence of infection. Patient was seen at [facility] and has recommended that he be worked up for occult malignancy due to his elevated white count. I have explained this to the patient and I do concur that this could be pursued as an outpatient. We will likely need to set him up with an outpatient appointment with Dr. Arellano. (2) Hyponatremia Plan: This is mild. Continue to monitor. (3) Lower extremity weakness Qualifiers: Laterality: bilateral Qualified Code(s): R29.898 - Other symptoms and signs involving the musculoskeletal system Is this a current diagnosis for this admission?: Yes Plan: The patient was sent to [facility] for further workup which was negative. Continue physical therapy here. (4) Thoracic aortic aneurysm without rupture Is this a current diagnosis for this admission?: Yes Plan: Stable. 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 Currently he has no home as the court has mandated that he cannot return there
[2017-03-19] MEDS: ARIPIPRAZOLE 5 MG TABLET PO SCH (22:34)
[2017-03-19] MEDS: TAMSULOSIN HCL 0.4 MG CAP.SR.24H PO SCH (22:34)
[2017-03-20] MEDS: GABAPENTIN 400 MG CAPSULE PO SCH ×3 (05:55→21:10)
[2017-03-20] MEDS: HEPARIN SOD (PORCINE) 5,000 UNIT/ML 1 ML SYRINGE SUBCUT SCH ×3 (05:55→21:09)
[2017-03-20] MEDS: IBUPROFEN 600 MG TABLET PO PRN ×2 (07:46→16:49)
[2017-03-20] MEDS: ENOXAPARIN SODIUM INJ 40 MG/0.4 ML DISP.SYRIN SUBCUT SCH (07:46)
[2017-03-20] MEDS: METOPROLOL TARTRATE 25 MG TABLET PO SCH ×2 (10:25→21:10)
[2017-03-20] MEDS: POLYETHYLENE GLYCOL 3350 POWDER 17 GM/1 PACKET PO SCH (10:25)
[2017-03-20] MEDS: ZINC SULFATE 220 MG CAPSULE PO SCH (10:25)
--- NOTE | 2017-03-20 17:54 | PDOC PROGRESS REPORT ---
Subjective Progress Note for:: 03/20/17 Subjective:: 51-year-old male with lower extremity weakness. The patient was initially admitted here earlier 03/08 to 03/11 for lower extremity weakness. There was concern for paraspinal abscesses and patient was transferred to [facility]. It appears his workup there was unremarkable and he was transferred back to this hospital. No complaints at this time. Denies any myalgias, no chest pain or shortness of breath or palpitations. Denies dysuria or polyuria or urinary frequency. Patient will need to be discharged to assisted living. Awaiting placement at assisted living facility--currently he has no home as the court has mandated that he cannot return there. Physical Exam Vital Signs: Temp Pulse Resp BP Pulse Ox 98.9 F 95 18 110/62 96 03/20/17 07:38 03/20/17 07:38 03/20/17 07:38 03/20/17 07:38 03/20/17 07:38 Intake & Output 03/19/17 03/20/17 03/21/17 06:59 06:59 05:59 Intake Total 353 1090 Output Total 900 1620 Balance -547 -530 Weight 88.5 kg 88.6 kg Exam: GENERAL: This is a well-developed appearing white male resting in bed currently in no acute distress. HEART: Regular rate and rhythm. No murmurs, rubs or gallops. LUNGS: Clear to auscultation bilaterally with equal rise and fall of the chest. ABDOMEN: Soft, nontender, nondistended with normoactive bowel sounds EXTREMETIES: No clubbing, cyanosis or edema. 2+ peripheral pulses bilaterally. NEURO: Awake, alert and oriented 3. Strength is 4 out of 5 in the lower extremities. Results Laboratory Results: 03/18/17 20:12 03/18/17 20:12 Assessment & Plan - Diagnosis (1) Hyponatremia Plan: Mild. Follow-up Chem-7 in a.m. (2) Leukocytosis Qualifiers: Leukocytosis type: unspecified Qualified Code(s): D72.829 - Elevated white blood cell count, unspecified Is this a current diagnosis for this admission?: Yes Plan: Patient's elevated white count is currently unexplained. There is no evidence of infection. Patient was seen at [facility] and the recommended that he be worked up for occult malignancy due to his elevated white count. Current plan is to pursue these as an outpatient. We will likely need to set him up with an outpatient appointment with Dr. Arellano. (3) Lower extremity weakness Qualifiers: Laterality: bilateral Qualified Code(s): R29.898 - Other symptoms and signs involving the musculoskeletal system Is this a current diagnosis for this admission?: Yes Plan: Continue physical therapy. (4) Thoracic aortic aneurysm without rupture Is this a current diagnosis for this admission?: Yes Plan: Stable. - Inpatient Certification Based on my medical assessment, after consideration of the patient's comorbidities, presenting symptoms, or acuity I expect that the services needed warrant INPATIENT care.: Yes I certify that my determination is in accordance with my understanding of Medicare's requirements for reasonable and necessary INPATIENT services [42 CFR 412.3e].: Yes Medical Necessity: Need Close Monitoring Due to Risk of Patient Decompensation Post Hospital Care: D/C or Transfer Summary
[2017-03-20] MEDS: TAMSULOSIN HCL 0.4 MG CAP.SR.24H PO SCH (21:10)
[2017-03-20] MEDS: ARIPIPRAZOLE 5 MG TABLET PO SCH (21:10)
[2017-03-21] MEDS: ACETAMINOPHEN 325 MG TABLET PO PRN (05:21)
[2017-03-21] MEDS: HEPARIN SOD (PORCINE) 5,000 UNIT/ML 1 ML SYRINGE SUBCUT SCH ×3 (05:21→21:44)
[2017-03-21] MEDS: GABAPENTIN 400 MG CAPSULE PO SCH ×3 (05:21→21:44)
[2017-03-21 05:53] LABS: ABSOLUTE BASOPHILS # (AUTO) 0.1 10^3/uL (0.0-0.2); ABSOLUTE EOSINOPHILS # (AUTO) 0.1 10^3/uL (0.0-0.6); ABSOLUTE LYMPHOCYTES (AUTO) 1.5 10^3/uL (0.5-4.7); ABSOLUTE MONOCYTES (AUTO) 0.9 10^3/uL (0.1-1.4); BASOPHILS % (AUTO) 0.6 % (0-2); EOSINOPHILS % (AUTO) 1.2 % (0-6); HEMATOCRIT 31.3 % (37.9-51.0); HEMOGLOBIN 10.9 g/dL (13.5-17.0); HGB HCT DIFFERENCE 1.4; LYMPHOCYTES % (AUTO) 13.9 % (13-45); MEAN CORPUSCULAR HEMOGLOBIN 33.5 pg (27.0-33.4); MEAN CORPUSCULAR HGB CONC 34.9 g/dL (32.0-36.0); MEAN CORPUSCULAR VOLUME 96 fl (80-97); MONOCYTES % (AUTO) 8.4 % (3-13); RED BLOOD COUNT 3.26 10^6/uL (4.35-5.55); RED CELL DISTRIBUTION WIDTH 14.8 % (11.5-14.0); SEGMENTED NEUTROPHILS % (AUTO) 75.9 % (42-78); WHITE BLOOD COUNT 10.6 10^3/uL (4.0-10.5)
[2017-03-21 06:25] LABS: ANION GAP 10 (5-19); BLOOD UREA NITROGEN 10 mg/dL (7-20); CALCIUM 8.3 mg/dL (8.4-10.2); CARBON DIOXIDE 26 mmol/L (22-30); CHLORIDE 102 mmol/L (98-107); CREATININE RESULT 0.64 mg/dL (0.52-1.25); GLUCOSE 96 mg/dL (75-110); POTASSIUM 4.6 mmol/L (3.6-5.0); SODIUM 137.8 mmol/L (137-145)
[2017-03-21] MEDS: IBUPROFEN 600 MG TABLET PO PRN ×3 (08:03→21:41)
[2017-03-21] MEDS: ENOXAPARIN SODIUM INJ 40 MG/0.4 ML DISP.SYRIN SUBCUT SCH (08:03)
[2017-03-21] MEDS: POLYETHYLENE GLYCOL 3350 POWDER 17 GM/1 PACKET PO SCH (09:58)
[2017-03-21] MEDS: ZINC SULFATE 220 MG CAPSULE PO SCH (09:58)
[2017-03-21] MEDS: METOPROLOL TARTRATE 25 MG TABLET PO SCH ×2 (09:58→21:44)
[2017-03-21] MEDS: ARIPIPRAZOLE 5 MG TABLET PO SCH (21:44)
[2017-03-21] MEDS: TAMSULOSIN HCL 0.4 MG CAP.SR.24H PO SCH (21:44)
[2017-03-22] MEDS: HEPARIN SOD (PORCINE) 5,000 UNIT/ML 1 ML SYRINGE SUBCUT SCH (05:29)
[2017-03-22] MEDS: GABAPENTIN 400 MG CAPSULE PO SCH ×3 (05:29→22:00)
[2017-03-22] MEDS: IBUPROFEN 600 MG TABLET PO PRN ×3 (05:29→20:24)
--- NOTE | 2017-03-22 07:45 | PDOC PROGRESS REPORT ---
Subjective Progress Note for:: 03/21/17 Subjective:: 51-year-old male with lower extremity weakness. The patient was initially admitted here earlier 03/08 to 03/11 for lower extremity weakness. There was concern for paraspinal abscesses and patient was transferred to [facility]. It appears his workup there was unremarkable and he was transferred back to this hospital. No complaints at this time. Denies any myalgias, no chest pain or shortness of breath or palpitations. Denies dysuria or polyuria or urinary frequency. Patient will need to be discharged to assisted living. Awaiting placement at assisted living facility--currently he has no home as the court has mandated that he cannot return there. Physical Exam Vital Signs: Temp Pulse Resp BP Pulse Ox 98.1 F 83 16 118/68 98 03/21/17 20:00 03/21/17 20:00 03/21/17 20:00 03/21/17 20:00 03/21/17 20:00 Intake & Output 03/20/17 03/21/17 03/22/17 07:59 06:59 06:59 Intake Total 730 Output Total 900 Balance -170 Weight Exam: GENERAL: This is a well-developed appearing white male resting in bed currently in no acute distress. HEART: Regular rate and rhythm. No murmurs, rubs or gallops. LUNGS: Clear to auscultation bilaterally with equal rise and fall of the chest. ABDOMEN: Soft, nontender, nondistended with normoactive bowel sounds EXTREMETIES: No clubbing, cyanosis or edema. 2+ peripheral pulses bilaterally. NEURO: Awake, alert and oriented 3. Strength is 4 out of 5 in the lower extremities. Results Laboratory Results: 03/21/17 04:50 03/21/17 04:50 03/21/17 03/21/17 04:50 04:50 WBC 10.6 H RBC 3.26 L Hgb 10.9 L Hct 31.3 L MCV 96 MCH 33.5 H MCHC 34.9 RDW 14.8 H Plt Count 519 H Seg Neutrophils % 75.9 Lymphocytes % 13.9 Monocytes % 8.4 Eosinophils % 1.2 Basophils % 0.6 Absolute Neutrophils 8.0 Absolute Lymphocytes 1.5 Absolute Monocytes 0.9 Absolute Eosinophils 0.1 Absolute Basophils 0.1 Sodium 137.8 Potassium 4.6 Chloride 102 Carbon Dioxide 26 Anion Gap 10 BUN 10 Creatinine 0.64 Est GFR ( Amer) > 60 Est GFR (Non-Af Amer) > 60 Glucose 96 Calcium 8.3 L Assessment & Plan - Diagnosis (1) Hyponatremia Plan: Resolved. continue to monitor. (2) Leukocytosis Qualifiers: Leukocytosis type: unspecified Qualified Code(s): D72.829 - Elevated white blood cell count, unspecified Is this a current diagnosis for this admission?: Yes Plan: Markedly improved today. Patient's elevated white count is currently unexplained. There is no evidence of infection. Patient was seen at [facility] and the recommended that he be worked up for occult malignancy due to his elevated white count. Current plan is to pursue these as an outpatient. We will likely need to set him up with an outpatient appointment with Dr. Arellano. (3) Lower extremity weakness Qualifiers: Laterality: bilateral Qualified Code(s): R29.898 - Other symptoms and signs involving the musculoskeletal system Is this a current diagnosis for this admission?: Yes Plan: Continue physical therapy. (4) Thoracic aortic aneurysm without rupture Is this a current diagnosis for this admission?: Yes Plan: Stable.
[2017-03-22] MEDS: METOPROLOL TARTRATE 25 MG TABLET PO SCH ×2 (09:58→22:00)
[2017-03-22] MEDS: ZINC SULFATE 220 MG CAPSULE PO SCH (09:59)
[2017-03-22] MEDS: POLYETHYLENE GLYCOL 3350 POWDER 17 GM/1 PACKET PO SCH (10:09)
[2017-03-22] MEDS ORDERED: ENOXAPARIN SODIUM INJ 40 MG/0.4 ML DISP.SYRIN SUBCUT ONE (14:00)
--- NOTE | 2017-03-22 19:37 | PDOC PROGRESS REPORT ---
Subjective Progress Note for:: 03/22/17 Subjective:: 51-year-old male with lower extremity weakness. The patient was initially admitted here earlier 03/08 to 03/11 for lower extremity weakness. There was concern for paraspinal abscesses and patient was transferred to [facility]. It appears his workup there was unremarkable and he was transferred back to this hospital. No complaints at this time. Denies any myalgias, no chest pain or shortness of breath or palpitations. Denies dysuria or polyuria or urinary frequency. Patient will need rehab. Awaiting placement at assisted living facility--currently he has no home as the court has mandated that he cannot return there. Apparently he can go to [facility] for [facility], but needs address where he will have to return to after rehab. Physical Exam Vital Signs: Temp Pulse Resp BP Pulse Ox 98.0 F 83 18 96/68 L 92 03/22/17 15:22 03/22/17 15:22 03/22/17 15:22 03/22/17 15:22 03/22/17 15:22 Intake & Output 03/21/17 03/22/17 03/23/17 06:59 06:59 06:59 Intake Total 1750 1060 Output Total 3000 1525 Balance -1250 -465 Weight 86.5 kg 86.5 kg Exam: GENERAL: This is a well-developed appearing white male resting in bed currently in no acute distress. HEART: Regular rate and rhythm. No murmurs, rubs or gallops. LUNGS: Clear to auscultation bilaterally with equal rise and fall of the chest. ABDOMEN: Soft, nontender, nondistended with normoactive bowel sounds EXTREMETIES: No clubbing, cyanosis or edema. 2+ peripheral pulses bilaterally. NEURO: Awake, alert and oriented 3. Strength is 4 out of 5 in the lower extremities. Results Laboratory Results: 03/21/17 04:50 03/21/17 04:50 Assessment & Plan - Diagnosis (1) Hyponatremia Plan: Resolved. continue to monitor. (2) Leukocytosis Qualifiers: Leukocytosis type: unspecified Qualified Code(s): D72.829 - Elevated white blood cell count, unspecified Is this a current diagnosis for this admission?: Yes Plan: Markedly improved today. Patient's elevated white count is currently unexplained. There is no evidence of infection. Patient was seen at [facility] and the recommended that he be worked up for occult malignancy due to his elevated white count. Current plan is to pursue these as an outpatient. We will likely need to set him up with an outpatient appointment with Dr. Arellano. (3) Lower extremity weakness Qualifiers: Laterality: bilateral Qualified Code(s): R29.898 - Other symptoms and signs involving the musculoskeletal system Is this a current diagnosis for this admission?: Yes Plan: Continue physical therapy. (4) Thoracic aortic aneurysm without rupture Is this a current diagnosis for this admission?: Yes Plan: Stable.
[2017-03-22 20:44] LABS: ABSOLUTE BASOPHILS # (AUTO) 0.1 10^3/uL (0.0-0.2); ABSOLUTE EOSINOPHILS # (AUTO) 0.2 10^3/uL (0.0-0.6); ABSOLUTE LYMPHOCYTES (AUTO) 1.5 10^3/uL (0.5-4.7); ABSOLUTE MONOCYTES (AUTO) 0.8 10^3/uL (0.1-1.4); ABSOLUTE NEUT (AUTO) 7.6 10^3/uL (1.7-8.2); BASOPHILS % (AUTO) 0.5 % (0-2); EOSINOPHILS % (AUTO) 2.1 % (0-6); HEMATOCRIT 31.9 % (37.9-51.0); HEMOGLOBIN 10.7 g/dL (13.5-17.0); HGB HCT DIFFERENCE 0.2; LYMPHOCYTES % (AUTO) 14.3 % (13-45); MEAN CORPUSCULAR HEMOGLOBIN 32.1 pg (27.0-33.4); MEAN CORPUSCULAR HGB CONC 33.5 g/dL (32.0-36.0); MEAN CORPUSCULAR VOLUME 96 fl (80-97); MONOCYTES % (AUTO) 8.1 % (3-13); RED BLOOD COUNT 3.33 10^6/uL (4.35-5.55); RED CELL DISTRIBUTION WIDTH 14.8 % (11.5-14.0); WHITE BLOOD COUNT 10.2 10^3/uL (4.0-10.5)
[2017-03-22 21:02] LABS: ANION GAP 10 (5-19); BLOOD UREA NITROGEN 13 mg/dL (7-20); CALCIUM 8.4 mg/dL (8.4-10.2); CARBON DIOXIDE 25 mmol/L (22-30); CHLORIDE 102 mmol/L (98-107); GLUCOSE 121 mg/dL (75-110); POTASSIUM 4.8 mmol/L (3.6-5.0); SODIUM 136.5 mmol/L (137-145)
[2017-03-22] MEDS: ARIPIPRAZOLE 5 MG TABLET PO SCH (22:00)
[2017-03-22] MEDS: TAMSULOSIN HCL 0.4 MG CAP.SR.24H PO SCH (22:00)
[2017-03-23] MEDS: IBUPROFEN 600 MG TABLET PO PRN ×3 (05:27→21:05)
[2017-03-23] MEDS: GABAPENTIN 400 MG CAPSULE PO SCH (05:27)
[2017-03-23] MEDS ORDERED: ENOXAPARIN SODIUM INJ 40 MG/0.4 ML DISP.SYRIN SUBCUT SCH (08:00)
[2017-03-23] MEDS: ENOXAPARIN SODIUM INJ 40 MG/0.4 ML DISP.SYRIN SUBCUT SCH (10:14)
[2017-03-23] MEDS: METOPROLOL TARTRATE 25 MG TABLET PO SCH ×2 (10:15→21:05)
[2017-03-23] MEDS: ZINC SULFATE 220 MG CAPSULE PO SCH (10:15)
[2017-03-23] MEDS: POLYETHYLENE GLYCOL 3350 POWDER 17 GM/1 PACKET PO SCH (10:21)
[2017-03-23] MEDS ORDERED: GABAPENTIN 400 MG CAPSULE PO SCH (10:23)
[2017-03-23] MEDS: GABAPENTIN 300 MG CAPSULE PO SCH ×2 (13:40→21:05)
--- NOTE | 2017-03-23 16:32 | PDOC PROGRESS REPORT ---
Subjective Progress Note for:: 03/23/17 Subjective:: Complains of neuropathy-like symptoms in his legs. Asked if he can go up on his gabapentin. Physical Exam Vital Signs: Temp Pulse Resp BP Pulse Ox 99.5 F 99 18 115/64 93 03/23/17 15:18 03/23/17 15:18 03/23/17 15:18 03/23/17 15:18 03/23/17 15:18 Intake & Output 03/22/17 03/23/17 03/24/17 06:59 06:59 06:59 Intake Total 1750 2140 Output Total 3000 2775 Balance -1250 -635 Weight 86.5 kg 85.4 kg General appearance: PRESENT: no acute distress Eye exam: PRESENT: conjunctiva pink. ABSENT: scleral icterus Mouth exam: PRESENT: moist, tongue midline Neck exam: ABSENT: JVD Respiratory exam: PRESENT: clear to auscultation kelsey. ABSENT: rales, rhonchi, wheezes Cardiovascular exam: PRESENT: RRR. ABSENT: diastolic murmur, rubs, systolic murmur GI/Abdominal exam: PRESENT: normal bowel sounds, soft. ABSENT: distended, guarding, mass, organolmegaly, rebound, tenderness Extremities exam: ABSENT: calf tenderness, clubbing, pedal edema Neurological exam: PRESENT: alert, awake, oriented to person, oriented to place , oriented to time, oriented to situation, CN II-XII grossly intact. ABSENT: motor sensory deficit Psychiatric exam: PRESENT: appropriate affect Skin exam: PRESENT: dry, intact, warm. ABSENT: cyanosis, rash Results Laboratory Results: 03/22/17 20:04 03/22/17 20:04 03/22/17 03/22/17 20:04 20:04 WBC 10.2 RBC 3.33 L Hgb 10.7 L Hct 31.9 L MCV 96 MCH 32.1 MCHC 33.5 RDW 14.8 H Plt Count 533 H Seg Neutrophils % 75.0 Lymphocytes % 14.3 Monocytes % 8.1 Eosinophils % 2.1 Basophils % 0.5 Absolute Neutrophils 7.6 Absolute Lymphocytes 1.5 Absolute Monocytes 0.8 Absolute Eosinophils 0.2 Absolute Basophils 0.1 Sodium 136.5 L Potassium 4.8 Chloride 102 Carbon Dioxide 25 Anion Gap 10 BUN 13 Creatinine 0.70 Est GFR ( Amer) > 60 Est GFR (Non-Af Amer) > 60 Glucose 121 H Calcium 8.4 Assessment & Plan - Diagnosis (1) Lower extremity weakness Qualifiers: Laterality: bilateral Qualified Code(s): R29.898 - Other symptoms and signs involving the musculoskeletal system Is this a current diagnosis for this admission?: Yes Plan: Patient went to [place] and no cause was found. He reports that his weakness has improved. (2) Leg pain Is this a current diagnosis for this admission?: Yes Plan: Will increase his gabapentin dose. (3) Hypertension Qualifiers: Hypertension type: essential hypertension Qualified Code(s): I10 - Essential (primary) hypertension Is this a current diagnosis for this admission?: Yes Plan: Blood pressure is stable. (4) Hyponatremia Is this a current diagnosis for this admission?: Yes Plan: Improved. (5) Thoracic aortic aneurysm without rupture Is this a current diagnosis for this admission?: Yes Plan: Stable. - Time Time Spent with patient: 25-34 minutes - Inpatient Certification Medical Necessity: Need Close Monitoring Due to Risk of Patient Decompensation - Plan Summary Plan Summary: Awaiting placement in assisted living.
[2017-03-23] MEDS: ARIPIPRAZOLE 5 MG TABLET PO SCH (21:05)
[2017-03-23] MEDS: TAMSULOSIN HCL 0.4 MG CAP.SR.24H PO SCH (21:05)
[2017-03-24] MEDS: GABAPENTIN 300 MG CAPSULE PO SCH ×3 (05:22→21:27)
[2017-03-24] MEDS: IBUPROFEN 600 MG TABLET PO PRN ×3 (05:23→21:27)
[2017-03-24] MEDS: POLYETHYLENE GLYCOL 3350 POWDER 17 GM/1 PACKET PO SCH (09:27)
[2017-03-24] MEDS: METOPROLOL TARTRATE 25 MG TABLET PO SCH ×2 (09:27→21:27)
[2017-03-24] MEDS: ZINC SULFATE 220 MG CAPSULE PO SCH (09:28)
[2017-03-24] MEDS: ENOXAPARIN SODIUM INJ 40 MG/0.4 ML DISP.SYRIN SUBCUT SCH (09:28)
--- NOTE | 2017-03-24 13:25 | PDOC PROGRESS REPORT ---
Subjective Progress Note for:: 03/24/17 Subjective:: Patient's neuropathy has improved with the higher dose of gabapentin. Physical Exam Vital Signs: Temp Pulse Resp BP Pulse Ox 98.3 F 106 H 16 127/78 H 98 03/24/17 11:44 03/24/17 11:44 03/24/17 11:44 03/24/17 11:44 03/24/17 11:44 Intake & Output 03/23/17 03/24/17 03/25/17 06:59 06:59 06:59 Intake Total 2140 1830 Output Total 2775 2019 Balance -635 -190 Weight 85.4 kg 85.6 kg General appearance: PRESENT: no acute distress Eye exam: PRESENT: conjunctiva pink. ABSENT: scleral icterus Mouth exam: PRESENT: moist, tongue midline Neck exam: ABSENT: JVD Respiratory exam: PRESENT: clear to auscultation kelsey. ABSENT: rales, rhonchi, wheezes Cardiovascular exam: PRESENT: RRR. ABSENT: diastolic murmur, rubs, systolic murmur GI/Abdominal exam: PRESENT: normal bowel sounds, soft. ABSENT: distended, guarding, mass, organolmegaly, rebound, tenderness Extremities exam: ABSENT: calf tenderness, clubbing, pedal edema Neurological exam: PRESENT: alert, awake, oriented to person, oriented to place , oriented to time, oriented to situation, CN II-XII grossly intact. ABSENT: motor sensory deficit Psychiatric exam: PRESENT: appropriate affect Skin exam: PRESENT: dry, intact, warm. ABSENT: cyanosis, rash Results Laboratory Results: 03/22/17 20:04 03/22/17 20:04 Assessment & Plan - Diagnosis (1) Lower extremity weakness Qualifiers: Laterality: bilateral Qualified Code(s): R29.898 - Other symptoms and signs involving the musculoskeletal system Is this a current diagnosis for this admission?: Yes Plan: Patient went to [place] and no cause was found. He reports that his weakness has improved. (2) Leg pain Is this a current diagnosis for this admission?: Yes Plan: Improved on the higher dose of gabapentin. (3) Hypertension Qualifiers: Hypertension type: essential hypertension Qualified Code(s): I10 - Essential (primary) hypertension Is this a current diagnosis for this admission?: Yes Plan: Blood pressure is stable. (4) Hyponatremia Is this a current diagnosis for this admission?: Yes Plan: Improved. (5) Thoracic aortic aneurysm without rupture Is this a current diagnosis for this admission?: Yes Plan: Stable. - Time Time Spent with patient: 25-34 minutes - Inpatient Certification Medical Necessity: Need Close Monitoring Due to Risk of Patient Decompensation - Plan Summary Plan Summary: Awaiting placement in assisted living.
[2017-03-24] MEDS: ARIPIPRAZOLE 5 MG TABLET PO SCH (21:27)
[2017-03-24] MEDS: TAMSULOSIN HCL 0.4 MG CAP.SR.24H PO SCH (21:27)
[2017-03-25] MEDS: GABAPENTIN 300 MG CAPSULE PO SCH ×3 (05:35→21:23)
[2017-03-25] MEDS: IBUPROFEN 600 MG TABLET PO PRN ×3 (05:35→21:23)
[2017-03-25] MEDS: ENOXAPARIN SODIUM INJ 40 MG/0.4 ML DISP.SYRIN SUBCUT SCH (09:06)
[2017-03-25] MEDS: POLYETHYLENE GLYCOL 3350 POWDER 17 GM/1 PACKET PO SCH (09:07)
[2017-03-25] MEDS: ZINC SULFATE 220 MG CAPSULE PO SCH (09:07)
[2017-03-25] MEDS: METOPROLOL TARTRATE 25 MG TABLET PO SCH ×2 (09:07→21:22)
--- NOTE | 2017-03-25 16:11 | PDOC PROGRESS REPORT ---
Subjective Progress Note for:: 03/25/17 Subjective:: Denies any complaints. Physical Exam Vital Signs: Temp Pulse Resp BP Pulse Ox 98.1 F 71 17 100/64 98 03/25/17 12:12 03/25/17 12:12 03/25/17 12:12 03/25/17 12:12 03/25/17 12:12 Intake & Output 03/24/17 03/25/17 03/26/17 06:59 06:59 06:59 Intake Total 1830 820 Output Total 2019 1800 Balance -190 -980 Weight 85.6 kg 85.6 kg General appearance: PRESENT: no acute distress Eye exam: PRESENT: conjunctiva pink. ABSENT: scleral icterus Mouth exam: PRESENT: moist, tongue midline Neck exam: ABSENT: JVD Respiratory exam: PRESENT: clear to auscultation kelsey. ABSENT: rales, rhonchi, wheezes Cardiovascular exam: PRESENT: RRR. ABSENT: diastolic murmur, rubs, systolic murmur GI/Abdominal exam: PRESENT: normal bowel sounds, soft. ABSENT: distended, guarding, mass, organolmegaly, rebound, tenderness Extremities exam: ABSENT: calf tenderness, clubbing, pedal edema Neurological exam: PRESENT: alert, awake, oriented to person, oriented to place , oriented to time, oriented to situation, CN II-XII grossly intact. ABSENT: motor sensory deficit Psychiatric exam: PRESENT: appropriate affect Skin exam: PRESENT: dry, intact, warm. ABSENT: cyanosis, rash Results Laboratory Results: 03/22/17 20:04 03/22/17 20:04 Assessment & Plan - Diagnosis (1) Lower extremity weakness Qualifiers: Laterality: bilateral Qualified Code(s): R29.898 - Other symptoms and signs involving the musculoskeletal system Is this a current diagnosis for this admission?: Yes Plan: Patient went to [place] and no cause was found. He reports that his weakness has improved. (2) Leg pain Is this a current diagnosis for this admission?: Yes Plan: Improved on the higher dose of gabapentin. (3) Hypertension Qualifiers: Hypertension type: essential hypertension Qualified Code(s): I10 - Essential (primary) hypertension Is this a current diagnosis for this admission?: Yes Plan: Blood pressure is stable. (4) Hyponatremia Is this a current diagnosis for this admission?: Yes Plan: Improved. (5) Thoracic aortic aneurysm without rupture Is this a current diagnosis for this admission?: Yes Plan: Stable. - Time Time Spent with patient: 25-34 minutes - Inpatient Certification Medical Necessity: Need Close Monitoring Due to Risk of Patient Decompensation
[2017-03-25] MEDS: ARIPIPRAZOLE 5 MG TABLET PO SCH (21:23)
[2017-03-25] MEDS: TAMSULOSIN HCL 0.4 MG CAP.SR.24H PO SCH (21:23)
[2017-03-26] MEDS: GABAPENTIN 300 MG CAPSULE PO SCH ×3 (05:56→21:23)
[2017-03-26 06:40] LABS: ABSOLUTE BASOPHILS # (AUTO) 0.1 10^3/uL (0.0-0.2); ABSOLUTE EOSINOPHILS # (AUTO) 0.3 10^3/uL (0.0-0.6); ABSOLUTE LYMPHOCYTES (AUTO) 1.9 10^3/uL (0.5-4.7); ABSOLUTE MONOCYTES (AUTO) 0.9 10^3/uL (0.1-1.4); BASOPHILS % (AUTO) 1.2 % (0-2); EOSINOPHILS % (AUTO) 3.1 % (0-6); HEMATOCRIT 32.9 % (37.9-51.0); HEMOGLOBIN 11.2 g/dL (13.5-17.0); HGB HCT DIFFERENCE 0.7; MEAN CORPUSCULAR HEMOGLOBIN 32.7 pg (27.0-33.4); MEAN CORPUSCULAR HGB CONC 33.9 g/dL (32.0-36.0); MEAN CORPUSCULAR VOLUME 96 fl (80-97); MONOCYTES % (AUTO) 9.7 % (3-13); RED BLOOD COUNT 3.42 10^6/uL (4.35-5.55); RED CELL DISTRIBUTION WIDTH 14.9 % (11.5-14.0); WHITE BLOOD COUNT 9.2 10^3/uL (4.0-10.5)
[2017-03-26 06:50] LABS: ANION GAP 13 (5-19); BLOOD UREA NITROGEN 14 mg/dL (7-20); CALCIUM 9.1 mg/dL (8.4-10.2); CARBON DIOXIDE 24 mmol/L (22-30); CHLORIDE 103 mmol/L (98-107); CREATININE RESULT 0.66 mg/dL (0.52-1.25); GLUCOSE 88 mg/dL (75-110); POTASSIUM 5.1 mmol/L (3.6-5.0)
[2017-03-26] MEDS: POLYETHYLENE GLYCOL 3350 POWDER 17 GM/1 PACKET PO SCH (10:00)
[2017-03-26] MEDS: ENOXAPARIN SODIUM INJ 40 MG/0.4 ML DISP.SYRIN SUBCUT SCH (10:10)
[2017-03-26] MEDS: IBUPROFEN 600 MG TABLET PO PRN ×2 (10:11→21:55)
[2017-03-26] MEDS: METOPROLOL TARTRATE 25 MG TABLET PO SCH ×2 (10:11→21:24)
[2017-03-26] MEDS: ZINC SULFATE 220 MG CAPSULE PO SCH (10:11)
--- NOTE | 2017-03-26 10:20 | PDOC PROGRESS REPORT ---
Subjective Progress Note for:: 03/26/17 Subjective:: Denies any complaints. Physical Exam Vital Signs: Temp Pulse Resp BP Pulse Ox 98.5 F 60 12 113/66 96 03/26/17 07:46 03/26/17 07:46 03/26/17 07:46 03/26/17 07:46 03/26/17 07:46 Intake & Output 03/25/17 03/26/17 03/27/17 06:59 06:59 06:59 Intake Total 820 1700 Output Total 1800 2900 Balance -980 -1200 Weight 85.6 kg General appearance: PRESENT: no acute distress Eye exam: PRESENT: conjunctiva pink. ABSENT: scleral icterus Mouth exam: PRESENT: moist, tongue midline Neck exam: ABSENT: JVD Respiratory exam: PRESENT: clear to auscultation kelsey. ABSENT: rales, rhonchi, wheezes Cardiovascular exam: PRESENT: RRR. ABSENT: diastolic murmur, rubs, systolic murmur GI/Abdominal exam: PRESENT: normal bowel sounds, soft. ABSENT: distended, guarding, mass, organolmegaly, rebound, tenderness Extremities exam: ABSENT: calf tenderness, clubbing, pedal edema Neurological exam: PRESENT: alert, awake, oriented to person, oriented to place , oriented to time, oriented to situation, CN II-XII grossly intact. ABSENT: motor sensory deficit Psychiatric exam: PRESENT: appropriate affect Skin exam: PRESENT: dry, intact, warm. ABSENT: cyanosis, rash Results Laboratory Results: 03/26/17 05:38 03/26/17 05:38 03/26/17 03/26/17 05:38 05:38 WBC 9.2 RBC 3.42 L Hgb 11.2 L Hct 32.9 L MCV 96 MCH 32.7 MCHC 33.9 RDW 14.9 H Plt Count 523 H Seg Neutrophils % 65.0 Lymphocytes % 21.0 Monocytes % 9.7 Eosinophils % 3.1 Basophils % 1.2 Absolute Neutrophils 6.0 Absolute Lymphocytes 1.9 Absolute Monocytes 0.9 Absolute Eosinophils 0.3 Absolute Basophils 0.1 Sodium 140.0 Potassium 5.1 H Chloride 103 Carbon Dioxide 24 Anion Gap 13 BUN 14 Creatinine 0.66 Est GFR ( Amer) > 60 Est GFR (Non-Af Amer) > 60 Glucose 88 Calcium 9.1 Assessment & Plan - Diagnosis (1) Lower extremity weakness Qualifiers: Laterality: bilateral Qualified Code(s): R29.898 - Other symptoms and signs involving the musculoskeletal system Is this a current diagnosis for this admission?: Yes Plan: Patient went to [place] and no cause was found. He reports that his weakness has improved. (2) Leg pain Is this a current diagnosis for this admission?: Yes Plan: Improved on the higher dose of gabapentin. (3) Hypertension Qualifiers: Hypertension type: essential hypertension Qualified Code(s): I10 - Essential (primary) hypertension Is this a current diagnosis for this admission?: Yes Plan: Blood pressure is stable. (4) Hyponatremia Is this a current diagnosis for this admission?: Yes Plan: Improved. (5) Thoracic aortic aneurysm without rupture Is this a current diagnosis for this admission?: Yes Plan: Stable. - Time Time Spent with patient: 25-34 minutes - Plan Summary Plan Summary: Awaiting placement.
[2017-03-26] MEDS: TAMSULOSIN HCL 0.4 MG CAP.SR.24H PO SCH (21:23)
[2017-03-26] MEDS: ARIPIPRAZOLE 5 MG TABLET PO SCH (21:23)
[2017-03-27] MEDS: GABAPENTIN 300 MG CAPSULE PO SCH ×3 (05:37→23:19)
[2017-03-27] MEDS: ENOXAPARIN SODIUM INJ 40 MG/0.4 ML DISP.SYRIN SUBCUT SCH (08:51)
[2017-03-27] MEDS: ZINC SULFATE 220 MG CAPSULE PO SCH (10:35)
[2017-03-27] MEDS: METOPROLOL TARTRATE 25 MG TABLET PO SCH ×2 (10:35→23:19)
[2017-03-27] MEDS: IBUPROFEN 600 MG TABLET PO PRN ×2 (10:39→23:20)
[2017-03-27] MEDS: POLYETHYLENE GLYCOL 3350 POWDER 17 GM/1 PACKET PO SCH (10:40)
--- NOTE | 2017-03-27 10:40 | PDOC PROGRESS REPORT ---
Subjective Progress Note for:: 03/27/17 Subjective:: Denies any complaints. Physical Exam Vital Signs: Temp Pulse Resp BP Pulse Ox 97.6 F 101 H 17 108/73 100 03/27/17 08:16 03/27/17 08:16 03/27/17 08:16 03/27/17 08:16 03/27/17 08:16 Intake & Output 03/26/17 03/27/17 03/28/17 06:59 06:59 06:59 Intake Total 1700 1340 Output Total 2900 2225 Balance -1200 -885 Weight 83.1 kg General appearance: PRESENT: no acute distress Psychiatric exam: PRESENT: appropriate affect Results Laboratory Results: 03/26/17 05:38 03/26/17 05:38 Assessment & Plan - Diagnosis (1) Lower extremity weakness Qualifiers: Laterality: bilateral Qualified Code(s): R29.898 - Other symptoms and signs involving the musculoskeletal system Is this a current diagnosis for this admission?: Yes Plan: Patient went to [place] and no cause was found. He reports that his weakness has improved. (2) Leg pain Is this a current diagnosis for this admission?: Yes Plan: Improved on the higher dose of gabapentin. (3) Hypertension Qualifiers: Hypertension type: essential hypertension Qualified Code(s): I10 - Essential (primary) hypertension Is this a current diagnosis for this admission?: Yes Plan: Blood pressure is stable. (4) Hyponatremia Is this a current diagnosis for this admission?: Yes Plan: Improved. (5) Thoracic aortic aneurysm without rupture Is this a current diagnosis for this admission?: Yes Plan: Stable. - Time Time Spent with patient: Less than 15 minutes - Inpatient Certification Medical Necessity: Need Close Monitoring Due to Risk of Patient Decompensation - Plan Summary Plan Summary: Awaiting placement.
[2017-03-27] MEDS: ARIPIPRAZOLE 5 MG TABLET PO SCH (23:18)
[2017-03-27] MEDS: TAMSULOSIN HCL 0.4 MG CAP.SR.24H PO SCH (23:20)
[2017-03-28] MEDS: GABAPENTIN 300 MG CAPSULE PO SCH ×3 (06:45→21:50)
[2017-03-28] MEDS: ENOXAPARIN SODIUM INJ 40 MG/0.4 ML DISP.SYRIN SUBCUT SCH (08:55)
[2017-03-28] MEDS: ZINC SULFATE 220 MG CAPSULE PO SCH (10:03)
[2017-03-28] MEDS: METOPROLOL TARTRATE 25 MG TABLET PO SCH ×2 (10:03→21:51)
[2017-03-28] MEDS: IBUPROFEN 600 MG TABLET PO PRN ×3 (10:04→21:53)
[2017-03-28] MEDS: POLYETHYLENE GLYCOL 3350 POWDER 17 GM/1 PACKET PO SCH (10:05)
--- NOTE | 2017-03-28 10:56 | PDOC PROGRESS REPORT ---
Subjective Progress Note for:: 03/28/17 Subjective:: Denies any complaints. Physical Exam Vital Signs: Temp Pulse Resp BP Pulse Ox 97.6 F 71 17 118/75 96 03/28/17 07:36 03/28/17 07:36 03/28/17 07:36 03/28/17 07:36 03/28/17 07:36 Intake & Output 03/27/17 03/28/17 03/29/17 06:59 06:59 06:59 Intake Total 1340 2220 Output Total 2225 2750 Balance -885 -530 Weight 83.1 kg 83.4 kg General appearance: PRESENT: no acute distress Eye exam: PRESENT: conjunctiva pink. ABSENT: scleral icterus Mouth exam: PRESENT: moist, tongue midline Neck exam: ABSENT: JVD Respiratory exam: PRESENT: clear to auscultation kelsey. ABSENT: rales, rhonchi, wheezes Cardiovascular exam: PRESENT: RRR. ABSENT: diastolic murmur, rubs, systolic murmur GI/Abdominal exam: PRESENT: normal bowel sounds, soft. ABSENT: distended, guarding, mass, organolmegaly, rebound, tenderness Extremities exam: ABSENT: calf tenderness, clubbing, pedal edema Neurological exam: PRESENT: alert, altered, awake, oriented to person, oriented to place, oriented to time, oriented to situation, reflexes normal, abnormal gait, ataxia, CN II-XII grossly intact, motor sensory deficit, normal gait, aphasic, other Psychiatric exam: PRESENT: appropriate affect Skin exam: PRESENT: dry, intact, warm. ABSENT: cyanosis, rash Results Laboratory Results: 03/26/17 05:38 03/26/17 05:38 Assessment & Plan - Diagnosis (1) Lower extremity weakness Qualifiers: Laterality: bilateral Qualified Code(s): R29.898 - Other symptoms and signs involving the musculoskeletal system Is this a current diagnosis for this admission?: Yes Plan: Patient went to [place] and no cause was found. He reports that his weakness has improved. (2) Leg pain Is this a current diagnosis for this admission?: Yes Plan: Improved on the higher dose of gabapentin. (3) Hypertension Qualifiers: Hypertension type: essential hypertension Qualified Code(s): I10 - Essential (primary) hypertension Is this a current diagnosis for this admission?: Yes Plan: Blood pressure is stable. (4) Hyponatremia Is this a current diagnosis for this admission?: Yes Plan: Improved. (5) Thoracic aortic aneurysm without rupture Is this a current diagnosis for this admission?: Yes Plan: Stable. - Time Time Spent with patient: 15-24 minutes - Plan Summary Plan Summary: Awaiting on a place for him to go live.
[2017-03-28] MEDS: TAMSULOSIN HCL 0.4 MG CAP.SR.24H PO SCH (21:51)
[2017-03-28] MEDS: ARIPIPRAZOLE 5 MG TABLET PO SCH (21:51)
[2017-03-29] MEDS: GABAPENTIN 300 MG CAPSULE PO SCH ×3 (06:36→22:00)
[2017-03-29 06:56] LABS: ABSOLUTE EOSINOPHILS # (AUTO) 0.2 10^3/uL (0.0-0.6); ABSOLUTE LYMPHOCYTES (AUTO) 1.8 10^3/uL (0.5-4.7); ABSOLUTE MONOCYTES (AUTO) 0.9 10^3/uL (0.1-1.4); ABSOLUTE NEUT (AUTO) 6.8 10^3/uL (1.7-8.2); BASOPHILS % (AUTO) 0.5 % (0-2); EOSINOPHILS % (AUTO) 2.1 % (0-6); HEMATOCRIT 33.6 % (37.9-51.0); HEMOGLOBIN 11.2 g/dL (13.5-17.0); LYMPHOCYTES % (AUTO) 18.4 % (13-45); MEAN CORPUSCULAR HEMOGLOBIN 32.3 pg (27.0-33.4); MEAN CORPUSCULAR HGB CONC 33.5 g/dL (32.0-36.0); MEAN CORPUSCULAR VOLUME 97 fl (80-97); MONOCYTES % (AUTO) 8.9 % (3-13); RED BLOOD COUNT 3.48 10^6/uL (4.35-5.55); SEGMENTED NEUTROPHILS % (AUTO) 70.1 % (42-78); WHITE BLOOD COUNT 9.7 10^3/uL (4.0-10.5)
[2017-03-29 07:25] LABS: ANION GAP 12 (5-19); BLOOD UREA NITROGEN 13 mg/dL (7-20); CALCIUM 9.3 mg/dL (8.4-10.2); CARBON DIOXIDE 26 mmol/L (22-30); CHLORIDE 103 mmol/L (98-107); CREATININE RESULT 0.67 mg/dL (0.52-1.25); GLUCOSE 85 mg/dL (75-110); POTASSIUM 4.7 mmol/L (3.6-5.0); SODIUM 141.4 mmol/L (137-145)
[2017-03-29] MEDS: POLYETHYLENE GLYCOL 3350 POWDER 17 GM/1 PACKET PO SCH (11:07)
[2017-03-29] MEDS: METOPROLOL TARTRATE 25 MG TABLET PO SCH ×2 (11:11→22:01)
[2017-03-29] MEDS: ZINC SULFATE 220 MG CAPSULE PO SCH (11:11)
[2017-03-29] MEDS: ENOXAPARIN SODIUM INJ 40 MG/0.4 ML DISP.SYRIN SUBCUT SCH (11:11)
--- NOTE | 2017-03-29 11:42 | PDOC PROGRESS REPORT ---
Subjective Progress Note for:: 03/29/17 Subjective:: Denies any complaints. Physical Exam Vital Signs: Temp Pulse Resp BP Pulse Ox 98.4 F 85 12 125/74 99 03/29/17 08:13 03/29/17 08:13 03/29/17 08:13 03/29/17 08:13 03/29/17 08:13 Intake & Output 03/28/17 03/29/17 03/30/17 06:59 06:59 06:59 Intake Total 2220 1830 Output Total 2750 1700 Balance -530 130 Weight 83.4 kg 83.3 kg General appearance: PRESENT: no acute distress Eye exam: PRESENT: conjunctiva pink. ABSENT: scleral icterus Mouth exam: PRESENT: moist, tongue midline Neck exam: ABSENT: JVD Respiratory exam: PRESENT: clear to auscultation kelsey. ABSENT: rales, rhonchi, wheezes Cardiovascular exam: PRESENT: RRR. ABSENT: diastolic murmur, rubs, systolic murmur GI/Abdominal exam: PRESENT: normal bowel sounds, soft. ABSENT: distended, guarding, mass, organolmegaly, rebound, tenderness Extremities exam: ABSENT: calf tenderness, clubbing, pedal edema Neurological exam: PRESENT: alert, awake, oriented to person, oriented to place , oriented to time, oriented to situation, CN II-XII grossly intact. ABSENT: motor sensory deficit Psychiatric exam: PRESENT: appropriate affect Skin exam: PRESENT: dry, intact, warm. ABSENT: cyanosis, rash Results Laboratory Results: 03/29/17 06:27 03/29/17 06:27 03/29/17 03/29/17 06:27 06:27 WBC 9.7 RBC 3.48 L Hgb 11.2 L Hct 33.6 L MCV 97 MCH 32.3 MCHC 33.5 RDW 15.0 H Plt Count 458 H Seg Neutrophils % 70.1 Lymphocytes % 18.4 Monocytes % 8.9 Eosinophils % 2.1 Basophils % 0.5 Absolute Neutrophils 6.8 Absolute Lymphocytes 1.8 Absolute Monocytes 0.9 Absolute Eosinophils 0.2 Absolute Basophils 0.0 Sodium 141.4 Potassium 4.7 Chloride 103 Carbon Dioxide 26 Anion Gap 12 BUN 13 Creatinine 0.67 Est GFR ( Amer) > 60 Est GFR (Non-Af Amer) > 60 Glucose 85 Calcium 9.3 Assessment & Plan - Diagnosis (1) Lower extremity weakness Qualifiers: Laterality: bilateral Qualified Code(s): R29.898 - Other symptoms and signs involving the musculoskeletal system Is this a current diagnosis for this admission?: Yes Plan: Patient went to [place] and no cause was found. He reports that his weakness has improved. (2) Leg pain Is this a current diagnosis for this admission?: Yes Plan: Improved on the higher dose of gabapentin. (3) Hypertension Qualifiers: Hypertension type: essential hypertension Qualified Code(s): I10 - Essential (primary) hypertension Is this a current diagnosis for this admission?: Yes Plan: Blood pressure is stable. (4) Hyponatremia Is this a current diagnosis for this admission?: Yes Plan: Improved. (5) Thoracic aortic aneurysm without rupture Is this a current diagnosis for this admission?: Yes Plan: Stable. - Time Time Spent with patient: 15-24 minutes - Plan Summary Plan Summary: Discharge planning has been trying to get the patient up to the [place] for rehab. If they are unable to get a place for him to go to rehab he will have to go home with home health. Patient however currently is having difficulty as he was recently incarcerated and cannot go back to his old home.
[2017-03-29] MEDS: IBUPROFEN 600 MG TABLET PO PRN ×2 (13:07→21:59)
[2017-03-29] MEDS: ARIPIPRAZOLE 5 MG TABLET PO SCH (22:01)
[2017-03-29] MEDS: TAMSULOSIN HCL 0.4 MG CAP.SR.24H PO SCH (22:01)
[2017-03-30] MEDS: GABAPENTIN 300 MG CAPSULE PO SCH ×3 (05:40→22:26)
[2017-03-30] MEDS: ENOXAPARIN SODIUM INJ 40 MG/0.4 ML DISP.SYRIN SUBCUT SCH (08:12)
[2017-03-30] MEDS: IBUPROFEN 600 MG TABLET PO PRN ×2 (08:22→16:46)
[2017-03-30] MEDS: ZINC SULFATE 220 MG CAPSULE PO SCH (10:33)
[2017-03-30] MEDS: METOPROLOL TARTRATE 25 MG TABLET PO SCH ×2 (10:33→22:26)
[2017-03-30] MEDS: POLYETHYLENE GLYCOL 3350 POWDER 17 GM/1 PACKET PO SCH (10:34)
--- NOTE | 2017-03-30 14:22 | PDOC PROGRESS REPORT ---
Subjective Progress Note for:: 03/30/17 Subjective:: This is a follow-up visit for lower extremity weakness. The patient was initially admitted here earlier in the month for lower extremity weakness. A major workup, Including scans of the patient's back to look for paraspinal abscesses was done. Despite the workup, the patient persisted in having an elevated white count and was sent out to a tertiary hospital for further investigation. Patient was seen by neurology and had a full workup at the outside hospital facility. He was sent back here for disposition. At this point the plan will be for the patient to be discharged from the hospital on home health. We are waiting for the CT to approve home health. Physical Exam Vital Signs: Temp Pulse Resp BP Pulse Ox 98.8 F 88 18 128/71 H 96 03/30/17 07:35 03/30/17 07:35 03/30/17 07:35 03/30/17 07:35 03/30/17 07:35 Intake & Output 03/29/17 03/30/17 03/31/17 06:59 06:59 06:59 Intake Total 1830 550 Output Total 1700 480 Balance 130 70 Weight 83.3 kg 83.8 kg GENERAL: This is a well-developed appearing white male resting in bed currently in no acute distress. HEART: Regular rate and rhythm. No murmurs, rubs or gallops. LUNGS: Clear to auscultation bilaterally with equal rise and fall of the chest. ABDOMEN: Soft, nontender, nondistended with normoactive bowel sounds EXTREMETIES: No clubbing, cyanosis or edema. 2+ peripheral pulses bilaterally. NEURO: Awake, alert and oriented 3. Cranial nerves II through XII are grossly intact. Results Laboratory Results: 03/29/17 06:27 03/29/17 06:27 Assessment & Plan - Diagnosis (1) Leukocytosis Qualifiers: Leukocytosis type: unspecified Qualified Code(s): D72.829 - Elevated white blood cell count, unspecified Is this a current diagnosis for this admission?: Yes Plan: Patient's white count is currently unexplained. There is no evidence of infection. Patient was seen at [facility] and has recommended that he be worked up for occult malignancy due to his elevated white count. This is currently resolved while waiting for placement. Further workup can be pursued as an outpatient. (2) Hyponatremia Is this a current diagnosis for this admission?: Yes Plan: Resolved continue to monitor. (3) Lower extremity weakness Qualifiers: Laterality: bilateral Qualified Code(s): R29.898 - Other symptoms and signs involving the musculoskeletal system Is this a current diagnosis for this admission?: Yes Plan: The patient was sent to [facility] for further workup which was negative. Continue physical therapy here. (4) Thoracic aortic aneurysm without rupture Is this a current diagnosis for this admission?: Yes Plan: Stable. - Time Time Spent with patient: 15-24 minutes Anticipated discharge: Home with Homehealth Within: within 24 hours
[2017-03-30] MEDS: ACETAMINOPHEN 325 MG TABLET PO PRN (20:18)
[2017-03-30] MEDS: TAMSULOSIN HCL 0.4 MG CAP.SR.24H PO SCH (22:26)
[2017-03-30] MEDS: ARIPIPRAZOLE 5 MG TABLET PO SCH (22:26)
[2017-03-31] MEDS: GABAPENTIN 300 MG CAPSULE PO SCH (06:01)
[2017-03-31] MEDS: ENOXAPARIN SODIUM INJ 40 MG/0.4 ML DISP.SYRIN SUBCUT SCH (08:29)
[2017-03-31] MEDS: IBUPROFEN 600 MG TABLET PO PRN (08:42)
[2017-03-31] MEDS: ZINC SULFATE 220 MG CAPSULE PO SCH (12:00)
[2017-03-31] MEDS: METOPROLOL TARTRATE 25 MG TABLET PO SCH (12:00)
[2017-03-31] MEDS: POLYETHYLENE GLYCOL 3350 POWDER 17 GM/1 PACKET PO SCH (12:01)
--- NOTE | 2017-03-31 12:50 | PDOC DISCHARGE SUMMARY ---
General - Admit/Disc Date/PCP Admission Date/Primary Care Provider: 03/20/17 10:31 Discharge Date: 03/31/17 - Discharge Diagnosis (1) Leukocytosis Is this a current diagnosis for this admission?: Yes Summary: This actually resolved without any intervention. The recommendations were for him to pursue outpatient workup of his leukocytosis with hematology oncology. If his white blood cell count goes up again with no obvious source the patient should definitely pursue this. (2) Hyponatremia Is this a current diagnosis for this admission?: Yes Summary: Resolved (3) Lower extremity weakness Is this a current diagnosis for this admission?: Yes Summary: Improved. Continue home health PT OT. (4) Thoracic aortic aneurysm without rupture Is this a current diagnosis for this admission?: Yes Summary: Follow-up as an outpatient. No intervention. - Additional Information Resuscitation Status: Full Code Home Medications: Aripiprazole [Abilify 10 mg Tablet] 10 mg PO QHS 03/18/17 Atorvastatin Calcium [Lipitor 80 mg Tablet] 80 mg PO QHS 03/18/17 Docusate Sodium [Colace 100 mg Capsule] 100 mg PO DAILY 03/18/17 Enoxaparin Sodium [Lovenox Inj 40 mg/0.4 ml Disp.syrin] 40 mg SQ QAM 03/18/17 Gabapentin [Neurontin 400 mg Capsule] 400 mg PO Q8 03/18/17 Meclizine HCl [Antivert 12.5 mg Tablet] 12.5 mg PO Q8HP PRN 03/18/17 Metoprolol Tartrate [Lopressor 25 mg Tablet] 25 mg PO Q12 03/18/17 Ondansetron [Zofran Odt 4 mg Tablet] 4 mg PO Q8HP PRN 03/18/17 Polyethylene Glycol 3350 [Miralax Powder 17 gm/Packet] 17 gm PO DAILY 03/18/17 Scopolamine Hydrobromide [Transderm-Scop 1.5 mg Patch] 1 patch TD Q3DAYS@1000 Sennosides [Senokot] 2 tab PO QHS 03/18/17 Tamsulosin HCl [Flomax 0.4 mg Cap.sr] 0.4 mg PO QHS 03/18/17 Tramadol HCl [Ultram 50 mg Tablet] 50 mg PO Q6HP PRN 03/18/17 Vitamin E 100 units PO DAILY 03/18/17 Zinc Sulfate [Zinc-220 Capsule] 220 mg PO DAILY 03/18/17 History of Present Illness History of Present Illness: CHELY ALVAREZ is a 51 year old male who was admitted here initially at the beginning of February and subsequently transferred out to [facility] for further workup of lower extremity weakness. He returned here for disposition. Please see the HPI from the admitting physician as outlined below. History of Present Illness Admission Date/PCP: 03/18/17 17:54 History of Present Illness: CHELY ALVAREZ is a 51 year old male who was transferred from here to [facility] for neurologic evaluation. Upon review of patient's discharge summary, it appears as though his workup there was unremarkable with the exception of a mildly low zinc and vitamin D level for which he was started on replacement. They do note the patient does have ongoing leukocytosis and recommend workup for malignancy. Patient will be on 23 hour observation. Hospital Course Hospital Course: The [facility] an extensive workup at [facility]. There was no etiology found for the patient's lower extremity weakness. The patient did have some electrolyte abnormalities and these were corrected. It was recommended that he pursue outpatient workup for possible hematologic cancer. Says the patient has been here the team has worked on finding the patient placement. Unfortunately the patient was not able to be accepted into SNF. He is being sent home with home health. While the patient was here he did receive physical therapy and did state to me that he felt that his weakness was a little bit better. He was told to follow-up at the [facility] for an outpatient appointment to be seen by his primary care provider. Physical Exam Vital Signs: Temp Pulse Resp BP Pulse Ox 98.4 F 92 18 119/71 95 03/31/17 11:56 03/31/17 11:56 03/31/17 11:56 03/31/17 11:56 03/31/17 11:56 Intake & Output 03/30/17 03/31/17 04/01/17 06:59 06:59 06:59 Intake Total 550 1710 Output Total 395 0205 Balance 70 -365 Weight 83.8 kg 83.9 kg GENERAL: This is a well-developed appearing white male resting in bed currently in no acute distress. HEART: Regular rate and rhythm. No murmurs, rubs or gallops. LUNGS: Clear to auscultation bilaterally with equal rise and fall of the chest. ABDOMEN: Soft, nontender, nondistended with normoactive bowel sounds EXTREMETIES: No clubbing, cyanosis or edema. 2+ peripheral pulses bilaterally. NEURO: Awake, alert and oriented 3. Cranial nerves II through XII are grossly intact. Results Laboratory Results: 03/29/17 06:27 03/29/17 06:27 Qualifiers PATEINT BEING DISCHARGED WITH ANY OF THE FOLLOWING DIAGNOSIS?: No Plan Time Spent: Less than 30 Minutes
[2017-03-31 13:34] VITALS: BP 92/63
== END 2017-03-31 14:00 | disposition home health service (06) | DRG 815 ==
LOC: 5 14:27 → UNDOADMOB 17:54 → INTOOBSV 17:54 → 5 17:54 → INTOOBSV 03-20 10:31 → OBSVTOIN 03-20 10:31
PROVIDERS: ADMIT Hospitalist; ATTEND Hospitalist
DX: D72.829 Elevated white blood cell count, unspecified (principal); E87.1 Hypo-osmolality and hyponatremia; R29.898 Other symptoms and signs involving the musculoskeletal system; I71.2 Thoracic aortic aneurysm, without rupture; I10 Essential (primary) hypertension; E78.5 Hyperlipidemia, unspecified; F43.10 Post-traumatic stress disorder, unspecified; Z79.899 Other long term (current) drug therapy; Z87.891 Personal history of nicotine dependence; Z88.0 Allergy status to penicillin; Z88.8 Allergy status to other drugs, medicaments and biological substances
CPT/HCPCS: 36415; 80048; 83735; 84100; 85025; J1644; J1650; J3490

== ENCOUNTER → 2018-04-28 | Outpatient (CLI) | payer OTHER ==
--- NOTE | 2018-04-28 10:58 | RADIOLOGY REPORT (SQ) ---
EXAM DESCRIPTION: MRI LT UPPER JOINT WITHOUT COMPLETED DATE/TIME: 04/28/2018 8:19 am REASON FOR STUDY: SPONTANEOUS RUPTURE OF OTHER TENDONS, UNSPEC UPPER ARM (M66.829) M66.829 SPONTANE OUS RUPTURE OF OTHER TENDONS, UNSPECIFIED UP COMPARISON: None. TECHNIQUE: Left elbow images acquired and stored on PACS. Multiplanar images to include fat sensiti ve sequences as T1, fluid sensitive sequences as T2/STIR, cartilage sensitive sequences as FSPD, and gradient echo sequences. LIMITATIONS: Fat saturation artifact. FINDINGS: BONE MARROW: No alteration of signal to suggest marrow replacement or edema. No occult fra cture. No large osteophytes. JOINT EFFUSION: None noted. No loose bodies. ARTICULAR SURFACES: Normal. MEDIAL COLLATERAL LIGAMENT COMPLEX: Intact without edema or tear. MEDIAL EPICONDYLE AND COMMON FLEXOR TENDON: No tendinopathy. No partial or full-thickness tear. LATERAL COLLATERAL LIGAMENT: Intact without edema or tear. LATERAL EPICONDYLE AND COMMON EXTENSOR TENDON: No tendinopathy. No partial or full-thickness tear. LATERAL ULNAR COLLATERAL LIGAMENT: Intact without evidence for tear. BICEPS TENDON: Intact. No partial or full-thickness tendon tear. No muscle edema. TRICEPS TENDON: Intact. ULNAR NERVE: Well-visualized without edema or encroachment. ADJACENT SOFT TISSUES: No masses or edema. OTHER: No other significant finding. IMPRESSION: No acute findings. TECHNICAL DOCUMENTATION: JOB ID: [id number] [employer]- All Rights Reserved Reading location - IP/workstation name: [facility]
== END ==
LOC: RAD 07:06
PROVIDERS: ATTEND Orthopaedic Surgery
DX: M66.822 Spontaneous rupture of other tendons, left upper arm (principal)